=== PATIENT | female | born 1990 | race Caucasian/White ===

== ENCOUNTER 2016-10-15 10:37 | Emergency (ER) | payer OTHER ==
[~2016-10-15] VITALS: Ht 170.1 cm; Wt 79.4 kg
[~2016-10-15 10:37] MED LIST: 'CIPRO PO; 'PARAFON FORTE500 M1 PO; ANAPROX DS550 MG PO; ATOXIMETIN-B1 CAP; AVPAK AZITHROM250 M1 PO; Accuneb 0.1.25 MG/3 INH; BENTYL10 MG PO; BUSPIRONE HCL7.5 MG PO; BUSPIRONE10 MG PO; CATAFLAM50 MG PO; CIPRO; CIPRO250 MG PO; CIPRO500 MG PO; CIPROFLOXACIN500 MG PO; CLARITIN-D 12 H1 TAB PO; CLINDAMYCIN HC300 MG PO; COUGH MEDICINE PO; DELTASONE10 MG; DELTASONE20 M1 PO; DEPO PROVER150 MG/M1 IM; DOXYCYCLINE HY100 M3 PO; DOXYCYCLINE MO100 MG PO; DOXYCYCLINE100 M2 PO; EC NAPROSYN500 MG PO; FIORICET 325 MG1 TAB PO; FIORICET 50-301 EACH PO; FLAGYL500 M1 PO; FLONASE 0.05% 121 EA NAS; IBU800 M1 PO; IMITREX25 M1 PO; LATU20TA PO; LATU40TA PO; LATU60TA PO; LEVAQUIN750 MG PO; MACROBID100 M1 PO; MACRODANTIN100 MG PO; MEDROL DOSEPAK4 MG PO; MOTRIN600 MG PO; MOTRIN800 MG PO; MULTI VITAMINS1 TAB PO; MULTIVITAMIN; MVI PEDIATRIC1 PDS PO; Miralax Powder255 GM PO; Motrin,Rufen800 MG PO; NAPROSYN500 MG PO; NEXIUM40 MG PO; NKHM; NORCO 325 MG-51 TAB PO; OVRAL-21 50 MCG1 TAB PO; Orphenadrine C100 MG PO; PEPCID20 MG PO; PERCOCET 325 MG1 TA5 PO; PREDNICOT10 MG PO; PREDNICOT20 MG PO; PREDNISONE10 MG PO; PREDNISONE20 M1 PO; PRENATA1 CTB; PRENATAL1 TA1 PO; PROVENTIL0.09 MG/A1 INH; PULMICORT RESP0.5 M1 INH; PYRIDIUM200 M1 PO; PYRIDIUM200 MG PO; Phenergan25 MG PO; REGLAN10 MG PO; RIZATRIPTAN10 MG PO; ROBITUSSIN AC 110 ML PO; ROBITUSSIN DM 105 ML PO; ROBITUSSIN5 ML PO; TRAMADOL HCL50 MG PO; TYLENOL W/CODEI1 TA2 PO; TYLENOL325 M1 PO; ULTRAM50 MG PO; VENTOLIN H0.09 MG/AC INH; VIBRA-TAB100 MG PO; VIBRAMYCIN100 MG PO; VITAMIN D50000 I3 PO; VOLTAREN50 M1 PO; ZANTAC150 MG PO; ZITHROMAX Z PA250 MG PO; ZITHROMAX250 MG PO; ZOFRAN ODT4 MG PO; ZOFRAN ODT4 MG SL; ZOFRAN4 MG PO; ZOLOFT25 MG PO; ZOVIRAX 5%2 GM; ZOVIRAX400 MG PO; Zofran4 MG PO; [UNRECOGNIZED DRUG - REMARK] INH
[2016-10-15 10:46] VITALS: BP 115/81
[2016-10-15] MEDS ORDERED: AMBIEN5 MG PO (10:46)
[2016-10-15] MEDS ORDERED: TIZANIDINE2 MG PO (10:47)
[2016-11-15] MEDS ORDERED: PREDNISONE10 MG PO (19:24)
[2016-11-15] MEDS ORDERED: AVPAK AZITHROM250 M1 PO (19:24)
== END 2016-10-15 12:34 | disposition home or self-care (01) ==
LOC: ED 10:37
DX: S83.91XA Sprain of unspecified site of right knee, initial encounter (principal); K21.9 Gastro-esophageal reflux disease without esophagitis; G43.909 Migraine, unspecified, not intractable, without status migrainosus; F17.200 Nicotine dependence, unspecified, uncomplicated; Z88.0 Allergy status to penicillin; Z88.1 Allergy status to other antibiotic agents; Z88.8 Allergy status to other drugs, medicaments and biological substances; X58.XXXA Exposure to other specified factors, initial encounter; Y93.66 Activity, soccer; Y92.9 Unspecified place or not applicable; Y99.9 Unspecified external cause status

== ENCOUNTER 2016-12-24 12:41 | Emergency (ER) | payer OTHER ==
[~2016-12-24] VITALS: Ht 170.1 cm; Wt 79.4 kg
[~2016-12-24 12:41] MED LIST changes: +AMBIEN5 MG PO; +TIZANIDINE2 MG PO
[2016-12-24 12:46] VITALS: BP 113/75
== END 2016-12-24 16:27 | disposition home or self-care (01) ==
LOC: ED 12:41
DX: G43.909 Migraine, unspecified, not intractable, without status migrainosus (principal); K21.9 Gastro-esophageal reflux disease without esophagitis; Z88.0 Allergy status to penicillin; Z88.1 Allergy status to other antibiotic agents; Z88.8 Allergy status to other drugs, medicaments and biological substances

== ENCOUNTER 2017-01-18 11:01 | Emergency (ER) | payer OTHER ==
[~2017-01-18] VITALS: Wt 79.4 kg
[2017-01-18 11:23] VITALS: BP 120/79
== END 2017-01-18 12:46 | disposition home or self-care (01) ==
LOC: ED 11:01
DX: S63.501A Unspecified sprain of right wrist, initial encounter (principal); F17.200 Nicotine dependence, unspecified, uncomplicated; Z88.0 Allergy status to penicillin; Z88.1 Allergy status to other antibiotic agents; Z88.2 Allergy status to sulfonamides; Z88.6 Allergy status to analgesic agent; Z88.8 Allergy status to other drugs, medicaments and biological substances

== ENCOUNTER 2017-01-24 10:05 | Emergency (ER) | payer OTHER ==
[~2017-01-24] VITALS: Ht 170.1 cm; Wt 79.4 kg
[2017-01-24 10:09] VITALS: BP 139/93
[2017-01-24] MEDS ORDERED: FLONASE ALLERG9.9 ML NAS (10:16)
[2017-01-24] MEDS ORDERED: ROBITUSSIN AC 110 ML PO (10:16)
[2017-01-24] MEDS ORDERED: PREDNISONE10 MG PO (10:16)
== END 2017-01-24 11:11 | disposition home or self-care (01) ==
LOC: ED 10:05
DX: B34.9 Viral infection, unspecified (principal); R03.0 Elevated blood-pressure reading, without diagnosis of hypertension; F17.200 Nicotine dependence, unspecified, uncomplicated; J45.901 Unspecified asthma with (acute) exacerbation; K21.9 Gastro-esophageal reflux disease without esophagitis; G43.909 Migraine, unspecified, not intractable, without status migrainosus; Z88.8 Allergy status to other drugs, medicaments and biological substances; Z90.49 Acquired absence of other specified parts of digestive tract; Z98.890 Other specified postprocedural states; Z88.0 Allergy status to penicillin; Z88.1 Allergy status to other antibiotic agents

== ENCOUNTER 2017-02-05 10:28 | Emergency (ER) | payer OTHER ==
[~2017-02-05] VITALS: Ht 170.1 cm; Wt 81.6 kg
--- NOTE | ~2017-02-05 | EKG ---
[place], [place] ELECTROCARDIOGRAM REPORT NAME: LEONORA NOLASCO UNIT #: [id number] ROOM: DOCTOR: JT WOMACK MD BIRTHDATE: [birth year] DOS: 02/05/2017 TIME: 1156 hours. FINDINGS: 1. Normal sinus rhythm at 75 beats per minute. 2. The tracing is normal. 3. No previous tracing is available for comparison. JT WOMACK MD CM:EKGRPT:ELECTROCARDIOGRAM REPORT [id number] JT WOMACK MD
[~2017-02-05 10:28] MED LIST changes: +FLONASE ALLERG9.9 ML NAS
[2017-02-05 11:01] VITALS: BP 142/92
[2017-02-05] MEDS ORDERED: ZOLPIDEM TART5 MG PO (11:02)
[2017-02-05] MEDS ORDERED: LATUDA80 M1 PO (11:02)
[2017-02-05] MEDS ORDERED: LATU20TA PO (11:03)
[2017-02-05 11:33] LABS: BILIRUBIN NEGATIVE (NEGATIVE); BLOOD NEGATIVE (NEGATIVE); CLARITY CLEAR (CLEAR); COLOR YELLOW (YELLOW); GLUCOSE NEGATIVE (NEGATIVE); KETONE NEGATIVE (NEGATIVE); LEUKO ESTERASE 2+ (NEGATIVE); NITRITE NEGATIVE (NEGATIVE); PH 6.5 (5.0-9.0); PROTEIN TRACE (NEGATIVE); SPECIFIC GRAVITY 1.015 (1.005-1.030)
[2017-02-05 11:36] LABS: BASO % 0.4 % (0.0-1.0); EOS # 0.1 10*3/uL (0.0-0.4); EOS % 0.9 % (1.0-4.0); HEMATOCRIT 40.3 % (37.0-47.0); HEMOGLOBIN 14.4 g/dl (12.0-16.0); LYMPH # 1.9 10*3/uL (1.3-4.4); LYMPH % 20.5 % (27.0-41.0); MEAN CELL VOLUME 90.2 fl (81.0-99.0); MEAN CORPUSCULAR HGB 32.2 pg (27.0-31.0); MEAN CORPUSCULAR HGB CONC 35.7 g/dl (33.0-37.0); MEAN PLATELET VOLUME 10.5 fl (9.6-12.3); MONO # 0.6 10*3/uL (0.1-1.0); MONO % 6.6 % (3.0-9.0); NEUT # 6.5 10*3/uL (2.3-7.9); NEUT % 71.3 % (47.0-73.0); PLATELET COUNT AUTOMATED 296 10*3/uL (130-400); RED BLOOD COUNT 4.47 10*6/uL (4.10-5.10); RED CELL DISTRI WIDTH 12.1 % (0-14.5); WHITE BLOOD COUNT 9.2 10*3/uL (4.8-10.8)
[2017-02-05 11:51] LABS: ALKALINE PHOSPHATASE 106 U/L (45-117); BILIRUBIN, TOTAL 0.6 mg/dl (0.2-1.0); BUN 7 mg/dl (7-24); CARBON DIOXIDE 25 mmol/L (21-32); CHLORIDE 106 mmol/L (98-107); EST GLOM FILT AFRICAN AMERICAN > 60 ml/min; GLUCOSE 88 mg/dL (65-99); MAGNESIUM 1.9 mg/dL (1.5-2.1); POTASSIUM 3.8 mmol/L (3.5-5.1); SGOT/AST 32 IU/L (3-35); SGPT/ALT 55 U/L (12-78); SODIUM 139 mmol/L (136-145); TOTAL PROTEIN 7.7 gm/dL (6.4-8.2)
[2017-02-05 11:52] LABS: BACTERIA 2+; URINE REFLEX COMMENT YES (NO)
[2017-02-05 11:53] LABS: EPITHELIAL CELLS 21-30
[2017-02-05 11:54] LABS: RBC 16-20 rbc/hpf (0-2)
[2017-02-05 11:55] LABS: URINE AMPHETAMINES > 1000 (1000ng/ml); URINE BARBITURATES < 200 (200ng/ml); URINE COCAINE < 300 (300ng/ml)
== END 2017-02-05 16:53 | disposition home or self-care (01) ==
LOC: ED 10:28
PROVIDERS: Emergency Medicine
DX: F32.9 Major depressive disorder, single episode, unspecified (principal); K21.9 Gastro-esophageal reflux disease without esophagitis; G43.909 Migraine, unspecified, not intractable, without status migrainosus; F17.200 Nicotine dependence, unspecified, uncomplicated; J44.9 Chronic obstructive pulmonary disease, unspecified; Z88.0 Allergy status to penicillin; Z88.1 Allergy status to other antibiotic agents; Z88.8 Allergy status to other drugs, medicaments and biological substances

== ENCOUNTER 2017-03-07 16:57 | Emergency (ER) | payer OTHER ==
[~2017-03-07 16:57] MED LIST changes: +LATUDA80 M1 PO; +ZOLPIDEM TART5 MG PO
[2017-03-07 16:59] VITALS: BP 119/84
[2017-03-07] MEDS ORDERED: ZOFRAN ODT4 MG SL (17:07)
[2017-03-07] MEDS ORDERED: CLINDAMYCIN HC300 MG PO (17:07)
== END 2017-03-07 17:38 | disposition home or self-care (01) ==
LOC: ED 16:57
DX: J02.0 Streptococcal pharyngitis (principal); Z88.0 Allergy status to penicillin; Z88.1 Allergy status to other antibiotic agents; Z88.8 Allergy status to other drugs, medicaments and biological substances

== ENCOUNTER 2017-05-03 17:47 | Emergency (ER) | payer OTHER ==
[~2017-05-03] VITALS: Ht 170.1 cm; Wt 81.6 kg
[2017-05-03 18:08] VITALS: BP 146/92
[2017-05-03] MEDS ORDERED: ZOLOFT25 MG PO (18:12)
[2017-05-03 18:19] LABS: BILIRUBIN NEGATIVE (NEGATIVE); BLOOD NEGATIVE (NEGATIVE); CLARITY CLOUDY (CLEAR); COLOR YELLOW (YELLOW); GLUCOSE NEGATIVE (NEGATIVE); KETONE NEGATIVE (NEGATIVE); LEUKO ESTERASE 1+ (NEGATIVE); NITRITE NEGATIVE (NEGATIVE); PROTEIN NEGATIVE (NEGATIVE); SPECIFIC GRAVITY <= 1.005 (1.005-1.030); UROBILINOGEN 0.2 E.U./dl (0.2-1.0)
[2017-05-03 18:27] LABS: URINE REFLEX COMMENT YES (NO)
[2017-05-03 18:28] LABS: BACTERIA TRACE; EPITHELIAL CELLS 16-20; MUCOUS TRACE
== END 2017-05-03 18:55 | disposition home or self-care (01) ==
LOC: ED 17:47
PROVIDERS: Emergency Medicine
DX: A59.9 Trichomoniasis, unspecified (principal); R10.30 Lower abdominal pain, unspecified; J44.9 Chronic obstructive pulmonary disease, unspecified; K21.9 Gastro-esophageal reflux disease without esophagitis; G43.909 Migraine, unspecified, not intractable, without status migrainosus; F17.200 Nicotine dependence, unspecified, uncomplicated; Z88.0 Allergy status to penicillin; Z88.1 Allergy status to other antibiotic agents; Z88.8 Allergy status to other drugs, medicaments and biological substances; Z79.899 Other long term (current) drug therapy

== ENCOUNTER 2017-05-15 12:11 | Emergency (ER) | payer OTHER ==
[~2017-05-15] VITALS: Ht 170.1 cm; Wt 79.8 kg
[2017-05-15 12:28] VITALS: BP 118/88
[2017-05-15 12:50] LABS: BILIRUBIN NEGATIVE (NEGATIVE); BLOOD NEGATIVE (NEGATIVE); CLARITY CLOUDY (CLEAR); COLOR YELLOW (YELLOW); GLUCOSE NEGATIVE (NEGATIVE); KETONE NEGATIVE (NEGATIVE); LEUKO ESTERASE 1+ (NEGATIVE); NITRITE NEGATIVE (NEGATIVE); PH 6.5 (5.0-9.0); PROTEIN NEGATIVE (NEGATIVE); UROBILINOGEN 0.2 E.U./dl (0.2-1.0)
[2017-05-15 13:01] LABS: BACTERIA 2+; EPITHELIAL CELLS 15-20; MUCOUS 1+; URINE REFLEX COMMENT YES (NO)
== END 2017-05-15 13:13 | disposition home or self-care (01) ==
LOC: ED 12:11
PROVIDERS: Emergency Medicine
DX: R10.2 Pelvic and perineal pain (principal); R25.2 Cramp and spasm; J45.909 Unspecified asthma, uncomplicated; K21.9 Gastro-esophageal reflux disease without esophagitis; F17.200 Nicotine dependence, unspecified, uncomplicated; Z88.0 Allergy status to penicillin; Z88.1 Allergy status to other antibiotic agents; Z88.8 Allergy status to other drugs, medicaments and biological substances; Z79.899 Other long term (current) drug therapy

== ENCOUNTER 2017-05-26 18:02 | Emergency (ER) | payer OTHER ==
[~2017-05-26] VITALS: Ht 170.1 cm; Wt 79.4 kg
[2017-05-26 18:05] VITALS: BP 145/97
== END 2017-05-26 19:41 | disposition home or self-care (01) ==
LOC: ED 18:02
DX: G43.909 Migraine, unspecified, not intractable, without status migrainosus (principal); J02.9 Acute pharyngitis, unspecified; F17.200 Nicotine dependence, unspecified, uncomplicated; Z90.49 Acquired absence of other specified parts of digestive tract; Z79.899 Other long term (current) drug therapy; Z88.8 Allergy status to other drugs, medicaments and biological substances; Z88.1 Allergy status to other antibiotic agents; Z88.0 Allergy status to penicillin; Z88.6 Allergy status to analgesic agent

== ENCOUNTER 2017-05-31 10:56 | Emergency (ER) | payer OTHER ==
[~2017-05-31] VITALS: Ht 170.1 cm; Wt 79.4 kg
[2017-05-31 11:10] VITALS: BP 126/77
[2017-05-31] MEDS ORDERED: CYCLOBENZAPRINE10 MG PO (12:35)
[2017-05-31] MEDS ORDERED: NAPROSYN500 MG PO (12:35)
== END 2017-05-31 13:01 | disposition home or self-care (01) ==
LOC: ED 10:56
DX: M43.6 Torticollis (principal); F17.200 Nicotine dependence, unspecified, uncomplicated; Z88.0 Allergy status to penicillin; Z88.1 Allergy status to other antibiotic agents; Z88.8 Allergy status to other drugs, medicaments and biological substances; Z79.899 Other long term (current) drug therapy

== ENCOUNTER 2017-06-12 11:05 | Emergency (ER) | payer OTHER ==
[~2017-06-12] VITALS: Ht 170.1 cm; Wt 79.4 kg
[~2017-06-12 11:05] MED LIST changes: +CYCLOBENZAPRINE10 MG PO
[2017-06-12 11:11] VITALS: BP 124/90
[2017-06-12] MEDS ORDERED: CORTISPORIN SUS10 ML OT (11:16)
== END 2017-06-12 11:14 | disposition home or self-care (01) ==
LOC: ED 11:05
DX: H60.92 Unspecified otitis externa, left ear (principal); H92.02 Otalgia, left ear; R03.0 Elevated blood-pressure reading, without diagnosis of hypertension; F17.200 Nicotine dependence, unspecified, uncomplicated; K21.9 Gastro-esophageal reflux disease without esophagitis; G43.909 Migraine, unspecified, not intractable, without status migrainosus; Z90.49 Acquired absence of other specified parts of digestive tract; Z79.899 Other long term (current) drug therapy; Z88.0 Allergy status to penicillin; Z88.1 Allergy status to other antibiotic agents; Z88.8 Allergy status to other drugs, medicaments and biological substances; Z88.6 Allergy status to analgesic agent

== ENCOUNTER 2017-07-07 10:06 | Inpatient (IN) | payer OTHER ==
[2017-07-07] VITALS (7 sets, daily range): BP systolic 112–122; BP diastolic 61–91
[~2017-07-07] VITALS: Ht 170.2 cm; Wt 83.3 kg
[~2017-07-07 10:06] MED LIST changes: +CORTISPORIN SUS10 ML OT; +ZOLOFT100 MG PO
[2017-07-07 10:52] LABS: BASO % 0.4 % (0.0-1.0); HEMATOCRIT 42.9 % (37.0-47.0); LYMPH # 0.6 10*3/uL (1.3-4.4); LYMPH % 5.9 % (27.0-41.0); MEAN CELL VOLUME 89.2 fl (81.0-99.0); MEAN CORPUSCULAR HGB 31.2 pg (27.0-31.0); MEAN PLATELET VOLUME 10.1 fl (9.6-12.3); MONO # 0.5 10*3/uL (0.1-1.0); MONO % 5.3 % (3.0-9.0); NEUT # 8.3 10*3/uL (2.3-7.9); NEUT % 87.7 % (47.0-73.0); PLATELET COUNT AUTOMATED 205 10*3/uL (130-400); RED BLOOD COUNT 4.81 10*6/uL (4.10-5.10); RED CELL DISTRI WIDTH 12.5 % (0-14.5); WHITE BLOOD COUNT 9.5 10*3/uL (4.8-10.8)
[2017-07-07 11:00] LABS: URINE AMPHETAMINES < 1000 (1000ng/ml); URINE BARBITURATES < 200 (200ng/ml); URINE BENZODIAZEPINES < 200 (200ng/ml); URINE CANNABINOIDS (THC) < 50 (50ng/ml); URINE COCAINE < 300 (300ng/ml); URINE METHADONE < 300 (300ng/ml); URINE OPIATES < 300 (300ng/ml)
[2017-07-07 11:04] LABS: URINE PHENCYCLIDINE < 25 (25ng/ml)
[2017-07-07 11:09] LABS: ALBUMIN 3.9 gm/dl (3.1-4.5); ALKALINE PHOSPHATASE 155 U/L (45-117); BUN 6 mg/dl (7-24); CHLORIDE 102 mmol/L (98-107); CREATININE 0.68 mg/dL (0.55-1.02); LIPASE 90 U/L (73-393); MAGNESIUM 1.7 mg/dL (1.5-2.1); POTASSIUM 3.7 mmol/L (3.5-5.1); SGOT/AST 51 IU/L (3-35); SGPT/ALT 58 U/L (12-78); SODIUM 135 mmol/L (136-145)
[2017-07-07 11:10] LABS: B-hCG (QUALITATIVE) NEGATIVE (NEGATIVE)
[2017-07-07 11:14] LABS: TROPONIN I < 0.015 ng/ml (<0.045)
[2017-07-07 11:15] LABS: THYROID STIM HORMONE (HS) 0.163 uIU/ml (0.358-4.75)
[2017-07-07 11:20] LABS: BILIRUBIN NEGATIVE (NEGATIVE); BLOOD NEGATIVE (NEGATIVE); CLARITY SL CLOUDY (CLEAR); COLOR YELLOW (YELLOW); GLUCOSE NEGATIVE (NEGATIVE); KETONE NEGATIVE (NEGATIVE); LEUKO ESTERASE NEGATIVE (NEGATIVE); NITRITE NEGATIVE (NEGATIVE); PH 6.5 (5.0-9.0)
[2017-07-07 11:27] LABS: CALCIUM OXALATE CRYSTALS 1+
[2017-07-07 11:28] LABS: BACTERIA TRACE
--- NOTE | 2017-07-07 12:56 | NUR ---
PT RESTING WITH EYES CLOSED. REPORTS HER HEADACHE REMAINS AND SLIGHT NAUSEA WELL DESPITE MEDICATION DOSING. WE WILL REPEAT RECTAL TEMP IN APPROX [address] RESULTS. LUMBAR PUNCTURE PENDING PER DR SALINAS AND DEPENDING ON SEVERAL FACTORS TO BE DETERMINED.
--- NOTE | 2017-07-07 14:52 | NUR ---
PATIENT RESTING WITH EYES CLOSED. PATIENT LAYING FLAT PER MD ORDERS AND WILL REMAIN FLAT FOR THE NEXT FEW HOURS. PATIENT IS GETTING NORMAL SALINE BOLUS AT THIS TIME. CALL LIGHT WITHIN REACH. NO NEEDS AT THIS TIME.
[2017-07-07 15:07] LABS: CSF RBC < 1000 /uL; CSF WBC 3 /uL
[2017-07-07 15:25] LABS: CSF GLUCOSE 62 mg/dL (40-70); CSF TOTAL PROTEIN 41.5 mg/dL (15-45)
[2017-07-07 15:49] LABS: CLARITY CLEAR; COLOR COLORLESS
[2017-07-07 15:58] LABS: CSF LYMPHOCYTES 77 % (40-80); CSF MONOCYTES 22 % (15-45)
--- NOTE | 2017-07-07 16:29 | NUR ---
SALINE AND ROCEPHIN INFUSING AT TIME OF ADMISSION, NOW.
--- NOTE | 2017-07-07 16:35 | NUR ---
A 26, admitted to [facility], under the services of RADHA Coker DO with a diagnosis of SEPSIS. Chief complaint is N/V AND COLD LIKE SYMPTOMS. Patient arrived via stretcher from ER. Monitor applied. Initial assessment completed. Vital signs taken and recorded. RADHA COKER DO notified of admission to the unit. Orders received. See assessment for past medical history, medications and allergies. Patient and/or family oriented to unit. [facility] visitation policy reviewed. Clothing/patient valuable form completed. JUSTIN PIMENTEL
--- NOTE | 2017-07-07 17:28 | NUR ---
Dr. Paez was notified of consult. Stated someone will see her in the AM.
[2017-07-07] MEDS ORDERED: ZANAFLEX4 M1 PO (17:37)
--- NOTE | 2017-07-07 17:38 | NUR ---
Meds were confirmed w/ pt. pharmacy.
--- NOTE | 2017-07-07 21:15 | NUR ---
PT STILL HUNGRY AFTER EATING ENTIRE DINNER TRAY. BOXED LUNCH PROVIDED.
[2017-07-08] VITALS: BP 124/60
[2017-07-08 04:00] VITALS: BP 119/74
--- NOTE | 2017-07-08 04:01 | NUR ---
RESTORIL AND TYLENOL GIVEN PER PT REQUEST FOR SLEEP AND GENERALIZED ACHES AT 0050 EFFECTIVE....PT HAS BEEN DOZING, AWAKENS EASILY, SAYS "FEELING BETTER".
[2017-07-08 04:35] LABS: MEAN CELL VOLUME 90.6 fl (81.0-99.0); MEAN CORPUSCULAR HGB 31.7 pg (27.0-31.0); MEAN PLATELET VOLUME 10.2 fl (9.6-12.3); RED BLOOD COUNT 3.82 10*6/uL (4.10-5.10); RED CELL DISTRI WIDTH 13.1 % (0-14.5); WHITE BLOOD COUNT 6.1 10*3/uL (4.8-10.8)
[2017-07-08 04:43] LABS: HEMATOCRIT 34.6 % (37.0-47.0); HEMOGLOBIN 12.1 g/dl (12.0-16.0); PLATELET COUNT AUTOMATED 140 10*3/uL (130-400)
[2017-07-08 04:47] LABS: ACT PARTIAL THROMBO TIME 25.5 SECONDS (20.8-31.5); INTERNATIONAL NORM RATIO 1.1 (2.0-3.5)
[2017-07-08 04:55] LABS: ALBUMIN 2.9 gm/dl (3.1-4.5); BUN 8 mg/dl (7-24); CHLORIDE 109 mmol/L (98-107); CHOLESTEROL 110 mg/dL (<200); CREATININE 0.58 mg/dL (0.55-1.02); MAGNESIUM 1.6 mg/dL (1.5-2.1); PHOSPHOROUS 2.2 mg/dL (2.5-4.9); POTASSIUM 3.9 mmol/L (3.5-5.1); SGOT/AST 134 IU/L (3-35); SGPT/ALT 98 U/L (12-78); SODIUM 140 mmol/L (136-145); TOTAL PROTEIN 5.9 gm/dL (6.4-8.2); TRIGLYCERIDES 57 mg/dl (<150); VLDL CHOLESTEROL 11 mg/dL (6-40)
[2017-07-08 04:57] LABS: ALKALINE PHOSPHATASE 181 U/L (45-117); ATYPICAL LYMPHS 1 % (0-0); FREE T4 0.84 ng/dl (0.76-1.46); HDL CHOLESTEROL 49 mg/dl (40-60); LDL CHOLESTEROL 50 mg/dL (9-159); PLATELET SUFFICIENCY LOW (NORMAL); TOTAL CELLS COUNTED 100 #CELLS
[2017-07-08 07:38] LABS: VITAMIN D, 25-HYDROXY 19.4 ng/mL (30-100)
[2017-07-08 08:00] VITALS: BP 130/85
--- NOTE | 2017-07-08 09:08 | NUR ---
Dr. Gomez in to [facility]. Medicated for c/o migraine. see e-nov.
--- NOTE | 2017-07-08 11:24 | NUR ---
Awakened for ABX side lying states headache has improved a little bit.
[2017-07-08 12:00] VITALS: BP 118/78
--- NOTE | 2017-07-08 12:26 | NUR ---
Dr. Purdy in to [facility]. Orders recieved.
--- NOTE | 2017-07-08 15:15 | NUR ---
RE: CONSTANT DOWNSTREAM OCCLUSION iv WAS RE-STARTED TO rw. Dr. Purdy in to [place] to transfer to [facility] . Awaiting orders.
[2017-07-08 16:00] VITALS: BP 123/83
[2017-07-08 20:00] VITALS: BP 125/84
--- NOTE | 2017-07-08 21:15 | NUR ---
PATIENT COMPLAINING OF HEADACHE AND CHEST PAIN CALLED ALAN SAMAYOA. WHO CAME UP TO THE FLOOR IMMEDATELY ORDERS RECIEVED. AFTER I INFORMED HIM PATIENT WAS JUST GIVEN MOTRIN FOR HEADACHE.
--- NOTE | 2017-07-08 23:00 | NUR ---
PATIENT REQUESTED MESH PANTIES AND PADS STATING SHE STARTED HER MENSTRUAL CYCLE.
--- NOTE | 2017-07-08 23:27 | NUR ---
PATIENT IS GAGING COUGHING AND VOMITNG.ZOFRAN NOT AFFECTIVE. CALLED DOCTOR DANITA WHO SAID HE WOULD PUT SOMETHING IN.
--- NOTE | 2017-07-08 23:42 | NUR ---
PATIENT GIVEN COMPAZINE FOR NAUSEA AND VOMITING.
[2017-07-09] VITALS: BP 120/76
--- NOTE | 2017-07-09 01:00 | NUR ---
PATIENT RESTING WITH EYES CLOSED NO VOMITING AT THIS TIME.MEDS AFFECTIVE
[2017-07-09 04:00] VITALS: BP 118/78
[2017-07-09 04:28] LABS: HEMATOCRIT 34.2 % (37.0-47.0); HEMOGLOBIN 12.2 g/dl (12.0-16.0); MEAN CELL VOLUME 89.5 fl (81.0-99.0); MEAN CORPUSCULAR HGB 31.9 pg (27.0-31.0); MEAN CORPUSCULAR HGB CONC 35.7 g/dl (33.0-37.0); MEAN PLATELET VOLUME 10.7 fl (9.6-12.3); PLATELET COUNT AUTOMATED 114 10*3/uL (130-400); RED BLOOD COUNT 3.82 10*6/uL (4.10-5.10); RED CELL DISTRI WIDTH 13.2 % (0-14.5); WHITE BLOOD COUNT 3.6 10*3/uL (4.8-10.8)
[2017-07-09 04:56] LABS: BASOPHILS 1 % (0-1); TOTAL CELLS COUNTED 100 #CELLS
[2017-07-09 04:58] LABS: PLATELET SUFFICIENCY LOW (NORMAL)
[2017-07-09 04:59] LABS: ALBUMIN 2.9 gm/dl (3.1-4.5); BUN 6 mg/dl (7-24); CHLORIDE 109 mmol/L (98-107); CREATININE 0.55 mg/dL (0.55-1.02); POTASSIUM 3.9 mmol/L (3.5-5.1); SGOT/AST 116 IU/L (3-35); SGPT/ALT 104 U/L (12-78); SODIUM 141 mmol/L (136-145); TOTAL PROTEIN 5.9 gm/dL (6.4-8.2)
[2017-07-09 05:00] LABS: ALKALINE PHOSPHATASE 292 U/L (45-117)
--- NOTE | 2017-07-09 06:20 | NUR ---
PATIENT RESTING WITH NO VOMITING. PATIENT HAS BEEN NPO SINCE MIDNIGHT. VITALS STABLE CURRENLTY.
[2017-07-09 08:00] VITALS: BP 124/83
[2017-07-09 08:11] LABS: HEPATITIS B SURFACE AG Negative (Negative); HEPATITIS C VIRUS ANTIBODY <0.1 s/co (0.0-0.9)
--- NOTE | 2017-07-09 11:44 | NUR ---
DR PLASENCIA CALLED AT PTS REQUEST, PT WANTS TO GO HOME, HER KIDS ARE CRYING FOR HER AND HER CAN NOT TAKE ANY MORE TIME OFF WORK, PT IS REQUESTING TO SEE HOME
--- NOTE | 2017-07-09 11:55 | NUR ---
DR BURKS SPOKE WITH PT,PT SIGNING AMA
--- NOTE | 2017-07-09 12:10 | NUR ---
FLU SHOT GIVEN PER POLICY, PT LEFT AMA
[2017-07-10 00:08] LABS: HSV-2 DNA Negative (Negative)
[2017-07-10 08:13] LABS: HIV 1+2 AB + HIV1 P24 AG Non Reactive (Non Reactive)
[2017-07-10] MEDS ORDERED: Zofran4 MG SL (15:57)
== END 2017-07-09 12:10 | disposition left against medical advice (07) | DRG 871 ==
LOC: ED 10:06 → EDHOLD 15:48 → ICCU 15:48
PROVIDERS: Emergency Medicine; Internal Medicine; ADMIT Internal Medicine
PROC: 009U3ZX Drainage of Spinal Canal, Percutaneous Approach, Diagnostic (ICD-10-PCS; principal; 2017-07-07)
DX: A41.9 Sepsis, unspecified organism (principal); G03.0 Nonpyogenic meningitis; E44.0 Moderate protein-calorie malnutrition; F31.30 Bipolar disorder, current episode depressed, mild or moderate severity, unspecified; M25.561 Pain in right knee; M54.5 Low back pain; J45.40 Moderate persistent asthma, uncomplicated; J32.9 Chronic sinusitis, unspecified; M54.31 Sciatica, right side; G43.919 Migraine, unspecified, intractable, without status migrainosus; K21.9 Gastro-esophageal reflux disease without esophagitis; Z53.21 Procedure and treatment not carried out due to patient leaving prior to being seen by health care provider; M79.1 Myalgia; R74.0 Nonspecific elevation of levels of transaminase and lactic acid dehydrogenase [LDH]; K59.00 Constipation, unspecified; Z68.28 Body mass index [BMI] 28.0-28.9, adult; Z88.8 Allergy status to other drugs, medicaments and biological substances; Z88.0 Allergy status to penicillin; Z88.1 Allergy status to other antibiotic agents; Z88.2 Allergy status to sulfonamides; Z79.899 Other long term (current) drug therapy; Z90.49 Acquired absence of other specified parts of digestive tract; Z87.440 Personal history of urinary (tract) infections; Z83.3 Family history of diabetes mellitus; Z80.9 Family history of malignant neoplasm, unspecified

== ENCOUNTER 2017-07-10 13:59 | Emergency (ER) | payer OTHER ==
[~2017-07-10] VITALS: Ht 170.1 cm; Wt 82.6 kg
[~2017-07-10 13:59] MED LIST changes: +ZANAFLEX4 M1 PO
[2017-07-10 14:04] VITALS: BP 148/70
[2017-07-10 14:57] LABS: HEMATOCRIT 40.1 % (37.0-47.0); MEAN CELL VOLUME 88.1 fl (81.0-99.0); MEAN CORPUSCULAR HGB 31.4 pg (27.0-31.0); MEAN CORPUSCULAR HGB CONC 35.7 g/dl (33.0-37.0); RED BLOOD COUNT 4.55 10*6/uL (4.10-5.10); WHITE BLOOD COUNT 6.8 10*3/uL (4.8-10.8)
[2017-07-10 15:02] LABS: HEMOGLOBIN 14.3 g/dl (12.0-16.0); PLATELET COUNT AUTOMATED 159 10*3/uL (130-400)
[2017-07-10 15:03] LABS: ALBUMIN 3.8 gm/dl (3.1-4.5); ALKALINE PHOSPHATASE 308 U/L (45-117); BUN 8 mg/dl (7-24); CHLORIDE 108 mmol/L (98-107); CREATININE 0.55 mg/dL (0.55-1.02); LIPASE 69 U/L (73-393); POTASSIUM 3.6 mmol/L (3.5-5.1); SGOT/AST 138 IU/L (3-35); SGPT/ALT 138 U/L (12-78); SODIUM 141 mmol/L (136-145); TOTAL PROTEIN 7.1 gm/dL (6.4-8.2)
[2017-07-10 15:08] LABS: BETA-HCG, QUANT < 1.0 mIU/mL (1-3)
[2017-07-10 15:13] LABS: ATYPICAL LYMPHS 2 % (0-0); BASOPHILS 1 % (0-1); TOTAL CELLS COUNTED 100 #CELLS
[2017-07-10 15:14] LABS: PLATELET SUFFICIENCY NORMAL (NORMAL)
[2017-07-10 15:40] LABS: BILIRUBIN 1+ (NEGATIVE); BLOOD NEGATIVE (NEGATIVE); CLARITY SL CLOUDY (CLEAR); COLOR YELLOW (YELLOW); GLUCOSE NEGATIVE (NEGATIVE); KETONE 1+ (NEGATIVE); LEUKO ESTERASE TRACE (NEGATIVE); NITRITE NEGATIVE (NEGATIVE); PH 6.5 (5.0-9.0)
[2017-07-10 15:52] LABS: BACTERIA 2+; EPITHELIAL CELLS 16-20; MUCOUS 1+; RBC 0-2 rbc/hpf (0-2)
[2017-07-10] MEDS ORDERED: Zofran4 MG SL (15:57)
== END 2017-07-10 16:14 | disposition home or self-care (01) ==
LOC: ED 13:59
PROVIDERS: Student in an Organized Health Care Education/Training Program
DX: N39.0 Urinary tract infection, site not specified (principal); K21.9 Gastro-esophageal reflux disease without esophagitis; G43.909 Migraine, unspecified, not intractable, without status migrainosus; F17.200 Nicotine dependence, unspecified, uncomplicated; Z88.0 Allergy status to penicillin; Z88.1 Allergy status to other antibiotic agents; Z79.899 Other long term (current) drug therapy

== ENCOUNTER 2017-08-07 21:03 | Emergency (ER) | payer OTHER ==
[~2017-08-07] VITALS: Ht 170.1 cm; Wt 81.6 kg
[~2017-08-07 21:03] MED LIST changes: +Zofran4 MG SL
[2017-08-07 21:14] VITALS: BP 144/84
[2017-08-07 21:24] LABS: BILIRUBIN NEGATIVE (NEGATIVE); BLOOD NEGATIVE (NEGATIVE); CLARITY SL CLOUDY (CLEAR); COLOR YELLOW (YELLOW); GLUCOSE NEGATIVE (NEGATIVE); KETONE NEGATIVE (NEGATIVE); LEUKO ESTERASE 2+ (NEGATIVE); NITRITE NEGATIVE (NEGATIVE); PH 5.5 (5.0-9.0); UROBILINOGEN 0.2 E.U./dl (0.2-1.0)
[2017-08-07 21:31] LABS: EPITHELIAL CELLS TNTC
[2017-08-07] MEDS ORDERED: ZOFRAN ODT4 MG SL (21:47)
[2017-08-07] MEDS ORDERED: MACROBID100 M1 PO (21:47)
== END 2017-08-07 21:51 | disposition home or self-care (01) ==
LOC: ED 21:03
PROVIDERS: Nurse Practitioner Family
DX: Z32.02 Encounter for pregnancy test, result negative (principal); N39.0 Urinary tract infection, site not specified; F17.200 Nicotine dependence, unspecified, uncomplicated; Z88.0 Allergy status to penicillin; Z88.1 Allergy status to other antibiotic agents; Z88.6 Allergy status to analgesic agent; Z90.49 Acquired absence of other specified parts of digestive tract

== ENCOUNTER 2017-10-06 18:39 | Emergency (ER) | payer OTHER ==
[~2017-10-06] VITALS: Ht 170.1 cm; Wt 79.4 kg
[2017-10-06] MEDS ORDERED: ZOLOFT100 MG PO (19:23)
[2017-10-06] MEDS ORDERED: LATU120T PO (19:23)
[2017-10-06] MEDS ORDERED: ZOLOFT50 MG PO (19:23)
[2017-10-06] MEDS ORDERED: AMBIEN10 M1 PO (19:23)
[2017-10-06 19:50] LABS: BASO # 0.1 10*3/uL (0.0-0.1); BASO % 0.6 % (0.0-1.0); EOS # 0.2 10*3/uL (0.0-0.4); EOS % 1.8 % (1.0-4.0); HEMATOCRIT 43.7 % (37.0-47.0); HEMOGLOBIN 15.1 g/dl (12.0-16.0); LYMPH % 23.8 % (27.0-41.0); MEAN CELL VOLUME 89.9 fl (81.0-99.0); MEAN CORPUSCULAR HGB 31.1 pg (27.0-31.0); MEAN CORPUSCULAR HGB CONC 34.6 g/dl (33.0-37.0); MEAN PLATELET VOLUME 10.9 fl (9.6-12.3); MONO # 0.7 10*3/uL (0.1-1.0); MONO % 5.4 % (3.0-9.0); NEUT # 8.4 10*3/uL (2.3-7.9); NEUT % 68.1 % (47.0-73.0); PLATELET COUNT AUTOMATED 322 10*3/uL (130-400); RED BLOOD COUNT 4.86 10*6/uL (4.10-5.10); RED CELL DISTRI WIDTH 12.2 % (0-14.5); WHITE BLOOD COUNT 12.4 10*3/uL (4.8-10.8)
[2017-10-06 19:56] LABS: BILIRUBIN NEGATIVE (NEGATIVE); BLOOD 1+ (NEGATIVE); CLARITY SL CLOUDY (CLEAR); COLOR YELLOW (YELLOW); GLUCOSE NEGATIVE (NEGATIVE); KETONE TRACE (NEGATIVE); LEUKO ESTERASE NEGATIVE (NEGATIVE); NITRITE NEGATIVE (NEGATIVE); PH 5.5 (5.0-9.0); UROBILINOGEN 0.2 E.U./dl (0.2-1.0)
[2017-10-06 20:04] LABS: ALBUMIN 4.4 gm/dl (3.1-4.5); ALKALINE PHOSPHATASE 119 U/L (45-117); BUN 7 mg/dl (7-24); CHLORIDE 105 mmol/L (98-107); CREATININE 0.78 mg/dL (0.55-1.02); LIPASE 169 U/L (73-393); POTASSIUM 3.8 mmol/L (3.5-5.1); SGOT/AST 14 IU/L (3-35); SGPT/ALT 20 U/L (12-78); SODIUM 139 mmol/L (136-145); TOTAL PROTEIN 8.1 gm/dL (6.4-8.2)
[2017-10-06 20:15] LABS: BACTERIA 1+; EPITHELIAL CELLS TNTC; MUCOUS 1+; WBC 0-2 wbc/hpf (0-5)
[2017-10-06] MEDS ORDERED: ZOFRAN ODT4 MG SL (21:44)
[2017-10-06 21:53] VITALS: BP 112/75
== END 2017-10-06 21:50 | disposition home or self-care (01) ==
LOC: ED 18:39
PROVIDERS: Physician Assistant
DX: K82.8 Other specified diseases of gallbladder (principal); Z88.1 Allergy status to other antibiotic agents; Z88.2 Allergy status to sulfonamides; Z88.0 Allergy status to penicillin; Z88.8 Allergy status to other drugs, medicaments and biological substances; Z79.899 Other long term (current) drug therapy

== ENCOUNTER → 2017-10-11 | Outpatient (CLI) | payer OTHER ==
[~2017-10-11] MED LIST changes: +AMBIEN10 M1 PO; +LATU120T PO; +ZOLOFT50 MG PO
== END | disposition home or self-care (01) ==
LOC: US 03:41
DX: R10.11 Right upper quadrant pain (principal)

== ENCOUNTER → 2017-10-20 | Outpatient (CLI) | payer OTHER ==
[~2017-10-20] MED LIST changes: +ADULT TUSS100 MG/5 M PO
== END | disposition home or self-care (01) ==
LOC: NM 06:42
DX: R10.11 Right upper quadrant pain (principal); R11.2 Nausea with vomiting, unspecified

== ENCOUNTER → 2017-11-02 | Outpatient (CLI) | payer OTHER ==
[~2017-11-02] VITALS: Ht 172.7 cm; Wt 79.4 kg
[2017-11-02 09:39] VITALS: BP 131/89
[2017-11-02 11:13] LABS: BASO # 0.1 10*3/uL (0.0-0.1); BASO % 0.6 % (0.0-1.0); EOS # 0.2 10*3/uL (0.0-0.4); EOS % 1.6 % (1.0-4.0); HEMATOCRIT 42.2 % (37.0-47.0); LYMPH % 20.5 % (27.0-41.0); MEAN CELL VOLUME 88.3 fl (81.0-99.0); MEAN CORPUSCULAR HGB 31.4 pg (27.0-31.0); MEAN CORPUSCULAR HGB CONC 35.5 g/dl (33.0-37.0); MEAN PLATELET VOLUME 10.9 fl (9.6-12.3); MONO # 0.7 10*3/uL (0.1-1.0); MONO % 6.9 % (3.0-9.0); NEUT # 6.8 10*3/uL (2.3-7.9); NEUT % 70.2 % (47.0-73.0); PLATELET COUNT AUTOMATED 316 10*3/uL (130-400); RED BLOOD COUNT 4.78 10*6/uL (4.10-5.10); RED CELL DISTRI WIDTH 12.4 % (0-14.5); WHITE BLOOD COUNT 9.7 10*3/uL (4.8-10.8)
[2017-11-02 11:19] LABS: BILIRUBIN NEGATIVE (NEGATIVE); BLOOD NEGATIVE (NEGATIVE); CLARITY CLOUDY (CLEAR); COLOR YELLOW (YELLOW); GLUCOSE NEGATIVE (NEGATIVE); KETONE TRACE (NEGATIVE); LEUKO ESTERASE 1+ (NEGATIVE); NITRITE NEGATIVE (NEGATIVE); PH 6.5 (5.0-9.0)
[2017-11-02 11:30] LABS: BACTERIA 2+; EPITHELIAL CELLS 21-30
[2017-11-02 11:39] LABS: ALBUMIN 4.4 gm/dl (3.1-4.5); ALKALINE PHOSPHATASE 120 U/L (45-117); BILIRUBIN, DIRECT 0.1 mg/dL (0.0-0.2); BUN 6 mg/dl (7-24); CHLORIDE 107 mmol/L (98-107); CREATININE 0.77 mg/dL (0.55-1.02); POTASSIUM 3.6 mmol/L (3.5-5.1); SGOT/AST 13 IU/L (3-35); SGPT/ALT 23 U/L (12-78); SODIUM 140 mmol/L (136-145); TOTAL PROTEIN 8.2 gm/dL (6.4-8.2)
[2017-11-02 11:44] LABS: ACT PARTIAL THROMBO TIME 23.9 SECONDS (20.8-31.5)
== END | disposition home or self-care (01) ==
LOC: LAB 00:01 → SDC 09:30 → EDSTATUS 11-04 09:30 → SDC 11-04 09:30
PROVIDERS: Surgery
DX: Z01.818 Encounter for other preprocedural examination (principal); K81.9 Cholecystitis, unspecified

== ENCOUNTER 2017-11-04 11:49 | Emergency (ER) | payer OTHER ==
[~2017-11-04] VITALS: Ht 172.7 cm; Wt 79.4 kg
[~2017-11-04 11:49] MED LIST changes: -ADULT TUSS100 MG/5 M PO
[2017-11-04 12:01] VITALS: BP 124/95
[2017-11-04 12:31] LABS: BILIRUBIN NEGATIVE (NEGATIVE); BLOOD NEGATIVE (NEGATIVE); CLARITY CLOUDY (CLEAR); COLOR YELLOW (YELLOW); GLUCOSE NEGATIVE (NEGATIVE); KETONE NEGATIVE (NEGATIVE); LEUKO ESTERASE 3+ (NEGATIVE); NITRITE NEGATIVE (NEGATIVE); UROBILINOGEN 0.2 E.U./dl (0.2-1.0)
[2017-11-04 12:46] LABS: BACTERIA 3+; EPITHELIAL CELLS 25-35; WBC TNTC wbc/hpf (0-5)
[2017-11-04] MEDS ORDERED: MACROBID100 M1 PO (12:54)
== END 2017-11-04 13:46 | disposition home or self-care (01) ==
LOC: ED 11:49
PROVIDERS: Nurse Practitioner Family
DX: O23.41 Unspecified infection of urinary tract in pregnancy, first trimester (principal); O99.331 Smoking (tobacco) complicating pregnancy, first trimester; F17.200 Nicotine dependence, unspecified, uncomplicated; Z79.899 Other long term (current) drug therapy; Z88.0 Allergy status to penicillin; Z3A.01 Less than 8 weeks gestation of pregnancy; Z90.49 Acquired absence of other specified parts of digestive tract; Z98.890 Other specified postprocedural states; Z88.1 Allergy status to other antibiotic agents; Z88.2 Allergy status to sulfonamides; Z88.6 Allergy status to analgesic agent; Z88.8 Allergy status to other drugs, medicaments and biological substances

== ENCOUNTER 2017-11-08 20:32 | Emergency (ER) | payer OTHER ==
[~2017-11-08] VITALS: Ht 172.7 cm; Wt 79.4 kg
[2017-11-08 20:55] VITALS: BP 127/85
[2017-11-08 21:17] LABS: BILIRUBIN NEGATIVE (NEGATIVE); BLOOD NEGATIVE (NEGATIVE); CLARITY CLEAR (CLEAR); COLOR YELLOW (YELLOW); GLUCOSE NEGATIVE (NEGATIVE); KETONE NEGATIVE (NEGATIVE); LEUKO ESTERASE 1+ (NEGATIVE); NITRITE NEGATIVE (NEGATIVE); UROBILINOGEN 0.2 E.U./dl (0.2-1.0)
[2017-11-08 21:40] LABS: BACTERIA TRACE; EPITHELIAL CELLS 30-35; RBC 0-2 rbc/hpf (0-2); WBC 0-2 wbc/hpf (0-5)
[2017-11-08] MEDS ORDERED: ADULT TUSS100 MG/5 M PO (22:09)
== END 2017-11-08 22:32 | disposition home or self-care (01) ==
LOC: ED 20:32
PROVIDERS: Nurse Practitioner Family
DX: O23.41 Unspecified infection of urinary tract in pregnancy, first trimester (principal); O99.511 Diseases of the respiratory system complicating pregnancy, first trimester; J06.9 Acute upper respiratory infection, unspecified; Z3A.01 Less than 8 weeks gestation of pregnancy; K21.9 Gastro-esophageal reflux disease without esophagitis; Z88.0 Allergy status to penicillin; Z88.1 Allergy status to other antibiotic agents; Z88.2 Allergy status to sulfonamides

== ENCOUNTER 2017-11-15 14:24 | Emergency (ER) | payer OTHER ==
[~2017-11-15] VITALS: Wt 79.4 kg
[~2017-11-15 14:24] MED LIST changes: +ADULT TUSS100 MG/5 M PO
[2017-11-15 14:32] VITALS: BP 118/90
[2017-11-15 14:58] LABS: BASO # 0.1 10*3/uL (0.0-0.1); BASO % 0.4 % (0.0-1.0); EOS # 0.2 10*3/uL (0.0-0.4); EOS % 1.5 % (1.0-4.0); HEMATOCRIT 40.7 % (37.0-47.0); HEMOGLOBIN 14.3 g/dl (12.0-16.0); LYMPH % 21.3 % (27.0-41.0); MEAN CELL VOLUME 88.5 fl (81.0-99.0); MEAN CORPUSCULAR HGB 31.1 pg (27.0-31.0); MEAN CORPUSCULAR HGB CONC 35.1 g/dl (33.0-37.0); MEAN PLATELET VOLUME 10.8 fl (9.6-12.3); MONO # 0.9 10*3/uL (0.1-1.0); MONO % 6.5 % (3.0-9.0); NEUT # 9.9 10*3/uL (2.3-7.9); NEUT % 69.8 % (47.0-73.0); PLATELET COUNT AUTOMATED 338 10*3/uL (130-400); RED CELL DISTRI WIDTH 12.5 % (0-14.5); WHITE BLOOD COUNT 14.2 10*3/uL (4.8-10.8)
[2017-11-15 15:07] LABS: ACT PARTIAL THROMBO TIME 23.2 SECONDS (20.8-31.5); INTERNATIONAL NORM RATIO 0.9 (2.0-3.5)
[2017-11-15 15:14] LABS: ALBUMIN 4.1 gm/dl (3.1-4.5); ALKALINE PHOSPHATASE 105 U/L (45-117); BUN 7 mg/dl (7-24); CHLORIDE 106 mmol/L (98-107); CREATININE 0.68 mg/dL (0.55-1.02); POTASSIUM 3.9 mmol/L (3.5-5.1); SGOT/AST 10 IU/L (3-35); SGPT/ALT 22 U/L (12-78); SODIUM 138 mmol/L (136-145); TOTAL PROTEIN 7.7 gm/dL (6.4-8.2)
[2017-11-15 15:25] LABS: BILIRUBIN NEGATIVE (NEGATIVE); BLOOD NEGATIVE (NEGATIVE); CLARITY SL CLOUDY (CLEAR); COLOR YELLOW (YELLOW); GLUCOSE NEGATIVE (NEGATIVE); KETONE NEGATIVE (NEGATIVE); LEUKO ESTERASE NEGATIVE (NEGATIVE); NITRITE NEGATIVE (NEGATIVE); SPECIFIC GRAVITY 1.025 (1.005-1.030); UROBILINOGEN 0.2 E.U./dl (0.2-1.0)
[2017-11-15 15:31] LABS: RBC 0-2 rbc/hpf (0-2)
[2017-11-15 15:32] LABS: BACTERIA 2+; MUCOUS TRACE
[2017-11-15 15:38] LABS: URINE AMPHETAMINES < 1000 (1000ng/ml); URINE BARBITURATES < 200 (200ng/ml); URINE BENZODIAZEPINES < 200 (200ng/ml); URINE CANNABINOIDS (THC) < 50 (50ng/ml); URINE COCAINE < 300 (300ng/ml); URINE METHADONE < 300 (300ng/ml); URINE OPIATES < 300 (300ng/ml)
[2017-11-15 15:39] LABS: URINE PHENCYCLIDINE < 25 (25ng/ml)
== END 2017-11-15 16:14 | disposition home or self-care (01) ==
LOC: ED 14:24
PROVIDERS: Physician Assistant
DX: O46.91 Antepartum hemorrhage, unspecified, first trimester (principal); Z3A.01 Less than 8 weeks gestation of pregnancy; Z88.0 Allergy status to penicillin; Z88.1 Allergy status to other antibiotic agents; Z88.8 Allergy status to other drugs, medicaments and biological substances; Z79.899 Other long term (current) drug therapy

== ENCOUNTER 2017-12-20 11:35 | Emergency (ER) | payer OTHER ==
[~2017-12-20] VITALS: Ht 170.1 cm; Wt 82.1 kg
[2017-12-20 11:49] VITALS: BP 118/78
[2017-12-20] MEDS ORDERED: REGLAN10 M1 PO (11:58)
[2017-12-20 12:11] LABS: BASO % 0.5 % (0.0-1.0); EOS # 0.1 10*3/uL (0.0-0.4); EOS % 1.3 % (1.0-4.0); HEMATOCRIT 38.8 % (37.0-47.0); HEMOGLOBIN 13.4 g/dl (12.0-16.0); LYMPH # 1.1 10*3/uL (1.3-4.4); LYMPH % 13.6 % (27.0-41.0); MEAN CELL VOLUME 92.2 fl (81.0-99.0); MEAN CORPUSCULAR HGB 31.8 pg (27.0-31.0); MEAN CORPUSCULAR HGB CONC 34.5 g/dl (33.0-37.0); MEAN PLATELET VOLUME 10.5 fl (9.6-12.3); MONO # 0.6 10*3/uL (0.1-1.0); MONO % 7.8 % (3.0-9.0); NEUT # 6.2 10*3/uL (2.3-7.9); NEUT % 76.2 % (47.0-73.0); PLATELET COUNT AUTOMATED 258 10*3/uL (130-400); RED BLOOD COUNT 4.21 10*6/uL (4.10-5.10); RED CELL DISTRI WIDTH 13.2 % (0-14.5); WHITE BLOOD COUNT 8.2 10*3/uL (4.8-10.8)
[2017-12-20 12:23] LABS: BILIRUBIN 1+ (NEGATIVE); BLOOD NEGATIVE (NEGATIVE); CLARITY CLOUDY (CLEAR); COLOR YELLOW (YELLOW); GLUCOSE NEGATIVE (NEGATIVE); KETONE NEGATIVE (NEGATIVE); LEUKO ESTERASE 1+ (NEGATIVE); NITRITE NEGATIVE (NEGATIVE); PH 6.5 (5.0-9.0); SPECIFIC GRAVITY 1.015 (1.005-1.030); UROBILINOGEN >= 8.0 E.U./dl (0.2-1.0)
[2017-12-20 12:27] LABS: ALBUMIN 3.3 gm/dl (3.1-4.5); ALKALINE PHOSPHATASE 88 U/L (45-117); BUN 5 mg/dl (7-24); CHLORIDE 104 mmol/L (98-107); CREATININE 0.52 mg/dL (0.55-1.02); POTASSIUM 3.6 mmol/L (3.5-5.1); SGOT/AST 15 IU/L (3-35); SGPT/ALT 21 U/L (12-78); SODIUM 137 mmol/L (136-145); TOTAL PROTEIN 7.1 gm/dL (6.4-8.2)
[2017-12-20 12:45] LABS: BACTERIA 2+; EPITHELIAL CELLS 20-30; MUCOUS 1+
[2017-12-20] MEDS ORDERED: PYRIDOXINE HCL25 MG PO (15:06)
[2017-12-20] MEDS ORDERED: UNISOM25 M1 PO (15:06)
== END 2017-12-20 15:10 | disposition home or self-care (01) ==
LOC: ED 11:35
PROVIDERS: Emergency Medicine
DX: O21.0 Mild hyperemesis gravidarum (principal); O26.891 Other specified pregnancy related conditions, first trimester; K21.9 Gastro-esophageal reflux disease without esophagitis; G43.909 Migraine, unspecified, not intractable, without status migrainosus; O99.511 Diseases of the respiratory system complicating pregnancy, first trimester; J45.909 Unspecified asthma, uncomplicated; Z3A.10 10 weeks gestation of pregnancy; Z90.49 Acquired absence of other specified parts of digestive tract; Z98.890 Other specified postprocedural states; Z88.8 Allergy status to other drugs, medicaments and biological substances; Z88.1 Allergy status to other antibiotic agents; Z88.0 Allergy status to penicillin; Z79.899 Other long term (current) drug therapy

== ENCOUNTER 2017-12-30 19:27 | Emergency (ER) | payer OTHER ==
[~2017-12-30] VITALS: Ht 172.7 cm; Wt 81.6 kg
[~2017-12-30 19:27] MED LIST changes: +PYRIDOXINE HCL25 MG PO; +REGLAN10 M1 PO; +UNISOM25 M1 PO
[2017-12-30 20:10] VITALS: BP 115/78
== END 2017-12-30 19:59 | disposition home or self-care (01) ==
LOC: ED 19:27
DX: O9A.211 Injury, poisoning and certain other consequences of external causes complicating pregnancy, first trimester (principal); S93.401A Sprain of unspecified ligament of right ankle, initial encounter; Z90.49 Acquired absence of other specified parts of digestive tract; Z98.890 Other specified postprocedural states; Z79.899 Other long term (current) drug therapy; Z88.0 Allergy status to penicillin; Z88.1 Allergy status to other antibiotic agents; Z88.6 Allergy status to analgesic agent; Z88.8 Allergy status to other drugs, medicaments and biological substances; Z88.2 Allergy status to sulfonamides; Z3A.12 12 weeks gestation of pregnancy; X50.1XXA Overexertion from prolonged static or awkward postures, initial encounter; Y93.89 Activity, other specified; Y92.89 Other specified places as the place of occurrence of the external cause; Y99.9 Unspecified external cause status

== ENCOUNTER → 2017-12-31 | Outpatient (CLI) | payer OTHER | END | disposition home or self-care (01) | LOC: RAD 13:39 | DX: M25.571 Pain in right ankle and joints of right foot (principal); M79.89 Other specified soft tissue disorders ==

== ENCOUNTER → 2018-02-23 | Outpatient (CLI) | payer OTHER ==
[~2018-02-23] MED LIST changes: +PRENATAL VITAM1 EAC4 PO; +PROAIR HFA8.5 GM INH
[2018-02-23 10:28] LABS: FREE T4 0.96 ng/dl (0.76-1.46)
[2018-02-23 10:34] LABS: THYROID STIM HORMONE (HS) 1.82 uIU/ml (0.358-4.75)
[2018-02-24 05:12] LABS: FREE T3 010389 3.2 pg/mL (2.0-4.4)
[2018-02-25 07:05] LABS: THYROID STIM IMMUNOGLOBULIN <0.10 IU/L (0.00-0.55)
== END | disposition home or self-care (01) ==
LOC: LAB 09:29
PROVIDERS: Internal Medicine
DX: R94.6 Abnormal results of thyroid function studies (principal)

== ENCOUNTER 2018-03-25 13:25 | Emergency (ER) | payer OTHER ==
[~2018-03-25] VITALS: Ht 170.1 cm; Wt 79.4 kg
[~2018-03-25 13:25] MED LIST changes: -PRENATAL VITAM1 EAC4 PO; -PROAIR HFA8.5 GM INH
[2018-03-25 13:30] VITALS: BP 128/75
[2018-03-25] MEDS ORDERED: PRENATAL VITAM1 EAC4 PO (13:32)
[2018-03-25] MEDS ORDERED: PREDNISONE10 MG PO (13:41)
[2018-03-25] MEDS ORDERED: PROAIR HFA8.5 GM INH (13:41)
== END 2018-03-25 13:43 | disposition home or self-care (01) ==
LOC: ED 13:25
DX: O99.512 Diseases of the respiratory system complicating pregnancy, second trimester (principal); J45.901 Unspecified asthma with (acute) exacerbation; K21.9 Gastro-esophageal reflux disease without esophagitis; G43.909 Migraine, unspecified, not intractable, without status migrainosus; Z88.1 Allergy status to other antibiotic agents; Z88.8 Allergy status to other drugs, medicaments and biological substances; Z79.899 Other long term (current) drug therapy; Z3A.24 24 weeks gestation of pregnancy

== ENCOUNTER 2018-03-27 20:59 | Emergency (ER) | payer OTHER ==
[~2018-03-27] VITALS: Ht 170.1 cm; Wt 78.9 kg
[~2018-03-27 20:59] MED LIST changes: +PRENATAL VITAM1 EAC4 PO; +PROAIR HFA8.5 GM INH
[2018-03-27 21:31] LABS: BASO % 0.3 % (0.0-1.0); EOS # 0.2 10*3/uL (0.0-0.4); EOS % 1.4 % (1.0-4.0); HEMATOCRIT 35.2 % (37.0-47.0); HEMOGLOBIN 12.1 g/dl (12.0-16.0); LYMPH # 2.7 10*3/uL (1.3-4.4); LYMPH % 23.2 % (27.0-41.0); MEAN CELL VOLUME 94.6 fl (81.0-99.0); MEAN CORPUSCULAR HGB 32.5 pg (27.0-31.0); MEAN CORPUSCULAR HGB CONC 34.4 g/dl (33.0-37.0); MEAN PLATELET VOLUME 10.8 fl (9.6-12.3); MONO # 0.5 10*3/uL (0.1-1.0); MONO % 4.1 % (3.0-9.0); NEUT # 8.1 10*3/uL (2.3-7.9); NEUT % 70.7 % (47.0-73.0); PLATELET COUNT AUTOMATED 209 10*3/uL (130-400); RED BLOOD COUNT 3.72 10*6/uL (4.10-5.10); RED CELL DISTRI WIDTH 13.7 % (0-14.5); WHITE BLOOD COUNT 11.5 10*3/uL (4.8-10.8)
[2018-03-27 21:50] LABS: ALBUMIN 3.1 gm/dl (3.1-4.5); ALKALINE PHOSPHATASE 85 U/L (45-117); BUN 7 mg/dl (7-24); CHLORIDE 109 mmol/L (98-107); CREATININE 0.58 mg/dL (0.55-1.02); POTASSIUM 2.9 mmol/L (3.5-5.1); SGOT/AST 18 IU/L (3-35); SGPT/ALT 28 U/L (12-78); SODIUM 140 mmol/L (136-145); TOTAL PROTEIN 6.9 gm/dL (6.4-8.2)
[2018-03-27 22:35] LABS: BILIRUBIN 1+ (NEGATIVE); BLOOD NEGATIVE (NEGATIVE); CLARITY SL CLOUDY (CLEAR); COLOR YELLOW (YELLOW); GLUCOSE NEGATIVE (NEGATIVE); KETONE 1+ (NEGATIVE); LEUKO ESTERASE TRACE (NEGATIVE); NITRITE NEGATIVE (NEGATIVE); SPECIFIC GRAVITY 1.025 (1.005-1.030)
[2018-03-27 22:47] LABS: BACTERIA 1+; MUCOUS 1+
[2018-03-28 00:01] VITALS: BP 110/73
== END 2018-03-28 00:38 | disposition left against medical advice (07) ==
LOC: ED 20:59
PROVIDERS: Emergency Medicine
DX: O99.512 Diseases of the respiratory system complicating pregnancy, second trimester (principal); J45.901 Unspecified asthma with (acute) exacerbation; O26.892 Other specified pregnancy related conditions, second trimester; E87.6 Hypokalemia; K21.9 Gastro-esophageal reflux disease without esophagitis; G43.909 Migraine, unspecified, not intractable, without status migrainosus; Z90.49 Acquired absence of other specified parts of digestive tract; Z98.890 Other specified postprocedural states; Z79.899 Other long term (current) drug therapy; Z88.1 Allergy status to other antibiotic agents; Z88.0 Allergy status to penicillin; Z88.6 Allergy status to analgesic agent; Z88.8 Allergy status to other drugs, medicaments and biological substances; Z3A.24 24 weeks gestation of pregnancy

== ENCOUNTER 2018-09-08 21:29 | Emergency (ER) | payer OTHER ==
[~2018-09-08] VITALS: Ht 170.1 cm; Wt 74.4 kg
[~2018-09-08 21:29] MED LIST changes: +NORCO 5-325 TA1 EACH PO
[2018-09-08 21:30] VITALS: BP 92/68
[2018-09-08] MEDS ORDERED: BANOPHEN50 MG PO (22:01)
[2018-09-08] MEDS ORDERED: KENALOG 0.1%80 GM T (22:01)
== END 2018-09-08 22:30 | disposition home or self-care (01) ==
LOC: ED 21:29
DX: L23.6 Allergic contact dermatitis due to food in contact with the skin (principal); L27.2 Dermatitis due to ingested food; J45.909 Unspecified asthma, uncomplicated; K21.9 Gastro-esophageal reflux disease without esophagitis; G43.909 Migraine, unspecified, not intractable, without status migrainosus; Z88.8 Allergy status to other drugs, medicaments and biological substances; Z88.2 Allergy status to sulfonamides; Z88.0 Allergy status to penicillin; Z88.1 Allergy status to other antibiotic agents; Z79.899 Other long term (current) drug therapy; Z90.49 Acquired absence of other specified parts of digestive tract

== ENCOUNTER 2018-10-13 12:26 | Emergency (ER) | payer OTHER ==
[~2018-10-13] VITALS: Ht 170.1 cm; Wt 73.5 kg
[2018-10-13 12:26] VITALS: BP 110/70
[~2018-10-13 12:26] MED LIST changes: +BANOPHEN50 MG PO; +KENALOG 0.1%80 GM T; +PREDNISONE50 MG PO
[2018-10-13] MEDS ORDERED: KENALOG 0.5% CR15 GM T (12:42)
== END 2018-10-13 12:49 | disposition home or self-care (01) ==
LOC: ED 12:26
DX: L25.9 Unspecified contact dermatitis, unspecified cause (principal); Z88.8 Allergy status to other drugs, medicaments and biological substances; Z88.1 Allergy status to other antibiotic agents; Z88.0 Allergy status to penicillin; Z79.899 Other long term (current) drug therapy

== ENCOUNTER 2018-10-18 12:32 | Emergency (ER) | payer OTHER ==
[~2018-10-18] VITALS: Ht 170.1 cm; Wt 73.5 kg
[2018-10-18 12:32] VITALS: BP 120/70
[~2018-10-18 12:32] MED LIST changes: +KENALOG 0.5% CR15 GM T
[2018-10-18 12:53] LABS: BASO % 0.5 % (0.0-1.0); EOS # 0.1 10*3/uL (0.0-0.4); EOS % 1.6 % (1.0-4.0); HEMATOCRIT 36.6 % (37.0-47.0); HEMOGLOBIN 12.8 g/dl (12.0-16.0); LYMPH # 2.4 10*3/uL (1.3-4.4); LYMPH % 29.3 % (27.0-41.0); MEAN CELL VOLUME 91.7 fl (81.0-99.0); MEAN CORPUSCULAR HGB 32.1 pg (27.0-31.0); MEAN PLATELET VOLUME 10.7 fl (9.6-12.3); MONO # 0.6 10*3/uL (0.1-1.0); MONO % 7.8 % (3.0-9.0); NEUT % 60.6 % (47.0-73.0); PLATELET COUNT AUTOMATED 290 10*3/uL (130-400); RED BLOOD COUNT 3.99 10*6/uL (4.10-5.10); RED CELL DISTRI WIDTH 13.4 % (0-14.5); WHITE BLOOD COUNT 8.2 10*3/uL (4.8-10.8)
[2018-10-18 12:55] LABS: BILIRUBIN NEGATIVE (NEGATIVE); BLOOD NEGATIVE (NEGATIVE); CLARITY CLOUDY (CLEAR); COLOR YELLOW (YELLOW); GLUCOSE NEGATIVE (NEGATIVE); KETONE TRACE (NEGATIVE); LEUKO ESTERASE 2+ (NEGATIVE); NITRITE NEGATIVE (NEGATIVE); SPECIFIC GRAVITY 1.015 (1.005-1.030)
[2018-10-18 13:07] LABS: BACTERIA 4+; EPITHELIAL CELLS TNTC; RBC TNTC rbc/hpf (0-2); WBC TNTC wbc/hpf (0-5)
[2018-10-18 13:10] LABS: ALBUMIN 3.6 gm/dl (3.1-4.5); ALKALINE PHOSPHATASE 68 U/L (45-117); BUN 7 mg/dl (7-24); CHLORIDE 110 mmol/L (98-107); CREATININE 0.73 mg/dL (0.55-1.02); POTASSIUM 3.5 mmol/L (3.5-5.1); SGOT/AST 14 IU/L (3-35); SGPT/ALT 21 U/L (12-78); SODIUM 141 mmol/L (136-145); TOTAL PROTEIN 6.8 gm/dL (6.4-8.2)
[2018-10-18] MEDS ORDERED: ZOFRAN4 MG PO (13:38)
[2018-10-18] MEDS ORDERED: MACROBID100 M1 PO (13:41)
== END 2018-10-18 13:46 | disposition home or self-care (01) ==
LOC: ED 12:32
PROVIDERS: Nurse Practitioner Family
DX: N39.0 Urinary tract infection, site not specified (principal); R51 Headache; F17.200 Nicotine dependence, unspecified, uncomplicated; Z88.0 Allergy status to penicillin; Z88.1 Allergy status to other antibiotic agents; Z88.8 Allergy status to other drugs, medicaments and biological substances; Z79.899 Other long term (current) drug therapy

== ENCOUNTER 2018-10-20 20:45 | Emergency (ER) | payer OTHER ==
[~2018-10-20] VITALS: Ht 167.6 cm; Wt 73.5 kg
--- NOTE | ~2018-10-20 | EKG ---
[place], [place] ELECTROCARDIOGRAM REPORT NAME: LEONORA NOLASCO UNIT #: [id number] ROOM: DOCTOR: EPIPHANY DRAFT REPORT BIRTHDATE: [birth year] [facility] Test Date: 2018-10-20 Test Time: 21:15:15 Pat Name: LEONORA NOLASCO Department: Room: Gender: F Market Manager: : 1990 Requested By: MP PABON Order Number: [id number] Reading MD: Measurements Intervals [place] Rate: 102 P: 72 TN: 173 QRS: 63 QRSD: 99 T: -14 QT: 342 QTc: 446 Interpretive Statements Sinus tachycardia Repol abnrm suggests ischemia, diffuse leads Baseline wander in lead(s) II,III,aVR,aVF,V3,V5 No previous ECG available for comparison CM:EKGRPT:ELECTROCARDIOGRAM REPORT 14 182 MP SALAZAR DRAFT REPORT MP PABON MD
[2018-10-20 21:21] LABS: BASO # 0.1 10*3/uL (0.0-0.1); BASO % 0.5 % (0.0-1.0); EOS # 0.3 10*3/uL (0.0-0.4); EOS % 1.9 % (1.0-4.0); HEMATOCRIT 40.9 % (37.0-47.0); HEMOGLOBIN 14.2 g/dl (12.0-16.0); LYMPH # 4.7 10*3/uL (1.3-4.4); LYMPH % 36.1 % (27.0-41.0); MEAN CORPUSCULAR HGB 32.3 pg (27.0-31.0); MEAN CORPUSCULAR HGB CONC 34.7 g/dl (33.0-37.0); MONO # 1.1 10*3/uL (0.1-1.0); MONO % 8.5 % (3.0-9.0); NEUT # 6.9 10*3/uL (2.3-7.9); NEUT % 52.8 % (47.0-73.0); PLATELET COUNT AUTOMATED 341 10*3/uL (130-400); RED CELL DISTRI WIDTH 13.6 % (0-14.5); WHITE BLOOD COUNT 13.1 10*3/uL (4.8-10.8)
[2018-10-20 21:23] LABS: BILIRUBIN NEGATIVE (NEGATIVE); BLOOD 2+ (NEGATIVE); CLARITY CLEAR (CLEAR); COLOR YELLOW (YELLOW); GLUCOSE NEGATIVE (NEGATIVE); KETONE NEGATIVE (NEGATIVE); LEUKO ESTERASE TRACE (NEGATIVE); NITRITE NEGATIVE (NEGATIVE); PH 6.5 (5.0-9.0); SPECIFIC GRAVITY 1.015 (1.005-1.030); UROBILINOGEN 0.2 E.U./dl (0.2-1.0)
[2018-10-20 21:31] LABS: BACTERIA 2+; URINE AMPHETAMINES < 1000 (1000ng/ml); URINE BARBITURATES < 200 (200ng/ml); URINE BENZODIAZEPINES < 200 (200ng/ml); URINE CANNABINOIDS (THC) < 50 (50ng/ml); URINE COCAINE < 300 (300ng/ml); URINE METHADONE < 300 (300ng/ml); URINE OPIATES < 300 (300ng/ml)
[2018-10-20 21:35] LABS: URINE PHENCYCLIDINE < 25 (25ng/ml)
[2018-10-20 21:39] LABS: ALBUMIN 3.9 gm/dl (3.1-4.5); ALKALINE PHOSPHATASE 77 U/L (45-117); BUN 8 mg/dl (7-24); CHLORIDE 109 mmol/L (98-107); CREATININE 0.82 mg/dL (0.55-1.02); POTASSIUM 2.8 mmol/L (3.5-5.1); SGOT/AST 14 IU/L (3-35); SGPT/ALT 25 U/L (12-78); SODIUM 142 mmol/L (136-145); TOTAL PROTEIN 7.6 gm/dL (6.4-8.2)
[2018-10-20 21:41] LABS: ACETAMINOPHEN (TYLENOL) < 5.0 ug/ml (10-30); BETA-HCG, QUANT < 1.0 mIU/mL (1-3); ETHYL ALCOHOL < 3.0 mg/dl (<3); TROPONIN I < 0.015 ng/ml (<0.045)
[2018-10-20 21:46] LABS: THYROID STIM HORMONE (HS) 0.489 uIU/ml (0.358-4.75)
[2018-10-21 06:12] LABS: BUN 4 mg/dl (7-24); CHLORIDE 109 mmol/L (98-107); CREATININE 0.64 mg/dL (0.55-1.02); POTASSIUM 3.7 mmol/L (3.5-5.1); SODIUM 141 mmol/L (136-145)
[2018-10-21 07:17] VITALS: BP 132/88
[2019-01-05] MEDS ORDERED: ZOFRAN4 MG PO (22:00)
[2019-02-19] MEDS ORDERED: ANAPROX DS550 MG PO (22:50)
[2019-04-13] MEDS ORDERED: VRAYLAR4.5 MG PO (12:09)
[2019-04-13] MEDS ORDERED: ZOFRAN4 MG PO (15:28)
== END 2018-10-21 08:24 | disposition home or self-care (01) ==
LOC: ED 20:45
PROVIDERS: Emergency Medicine Emergency Medical Services
DX: F31.9 Bipolar disorder, unspecified (principal); R11.2 Nausea with vomiting, unspecified; J45.909 Unspecified asthma, uncomplicated; K21.9 Gastro-esophageal reflux disease without esophagitis; G43.909 Migraine, unspecified, not intractable, without status migrainosus; Z90.49 Acquired absence of other specified parts of digestive tract; Z88.8 Allergy status to other drugs, medicaments and biological substances; Z88.2 Allergy status to sulfonamides; Z88.0 Allergy status to penicillin; Z88.1 Allergy status to other antibiotic agents

== ENCOUNTER 2018-11-19 16:07 | Emergency (ER) | payer OTHER ==
[~2018-11-19] VITALS: Ht 170.1 cm; Wt 68.0 kg
[2018-11-19 16:10] VITALS: BP 140/92
[2018-11-19] MEDS ORDERED: PREDNISONE50 MG PO (16:59)
[2018-11-19] MEDS ORDERED: GUAIFENESIN600 MG PO (17:00)
[2019-01-05] MEDS ORDERED: ZOFRAN4 MG PO (22:00)
[2019-02-19] MEDS ORDERED: ANAPROX DS550 MG PO (22:50)
[2019-04-13] MEDS ORDERED: VRAYLAR4.5 MG PO (12:09)
[2019-04-13] MEDS ORDERED: ZOFRAN4 MG PO (15:28)
== END 2018-11-19 17:15 | disposition home or self-care (01) ==
LOC: ED 16:07
DX: J45.901 Unspecified asthma with (acute) exacerbation (principal); J06.9 Acute upper respiratory infection, unspecified; G43.909 Migraine, unspecified, not intractable, without status migrainosus; K21.9 Gastro-esophageal reflux disease without esophagitis; Z88.8 Allergy status to other drugs, medicaments and biological substances; Z88.2 Allergy status to sulfonamides; Z88.0 Allergy status to penicillin; Z88.1 Allergy status to other antibiotic agents

== ENCOUNTER 2018-11-26 23:42 | Emergency (ER) | payer OTHER ==
[~2018-11-26] VITALS: Ht 170.1 cm; Wt 68.0 kg
[~2018-11-26 23:42] MED LIST changes: +GUAIFENESIN600 MG PO
[2018-11-26 23:44] VITALS: BP 119/77
[2018-11-26] MEDS ORDERED: PREDNISONE50 MG PO (23:58)
[2018-11-26] MEDS ORDERED: TESSALON PERLE100 MG PO (23:58)
[2018-11-26] MEDS ORDERED: AVPAK AZITHROM250 MG PO (23:58)
[2019-01-05] MEDS ORDERED: ZOFRAN4 MG PO (22:00)
[2019-02-19] MEDS ORDERED: ANAPROX DS550 MG PO (22:50)
[2019-04-13] MEDS ORDERED: VRAYLAR4.5 MG PO (12:09)
[2019-04-13] MEDS ORDERED: ZOFRAN4 MG PO (15:28)
== END 2018-11-27 00:22 | disposition home or self-care (01) ==
LOC: ED 23:42
DX: J20.9 Acute bronchitis, unspecified (principal); J45.909 Unspecified asthma, uncomplicated; Z88.8 Allergy status to other drugs, medicaments and biological substances; Z88.2 Allergy status to sulfonamides; Z88.1 Allergy status to other antibiotic agents; Z88.0 Allergy status to penicillin; Z79.899 Other long term (current) drug therapy

== ENCOUNTER 2019-03-28 17:58 | Emergency (ER) | payer OTHER ==
[~2019-03-28] VITALS: Ht 170.1 cm; Wt 74.8 kg
[~2019-03-28 17:58] MED LIST changes: +AVPAK AZITHROM250 MG PO; +TESSALON PERLE100 MG PO
[2019-03-28 17:59] VITALS: BP 127/83
[2019-04-13] MEDS ORDERED: VRAYLAR4.5 MG PO (12:09)
[2019-04-13] MEDS ORDERED: ZOFRAN4 MG PO (15:28)
== END 2019-03-28 20:55 | disposition home or self-care (01) ==
LOC: ED 17:58
DX: G43.909 Migraine, unspecified, not intractable, without status migrainosus (principal); R11.10 Vomiting, unspecified; Z90.49 Acquired absence of other specified parts of digestive tract; Z98.890 Other specified postprocedural states; Z79.899 Other long term (current) drug therapy; Z88.6 Allergy status to analgesic agent; Z88.0 Allergy status to penicillin; Z88.1 Allergy status to other antibiotic agents; Z88.8 Allergy status to other drugs, medicaments and biological substances

== ENCOUNTER 2019-05-31 08:20 | Emergency (ER) | payer OTHER ==
[~2019-05-31] VITALS: Ht 170.1 cm; Wt 69.4 kg
[~2019-05-31 08:20] MED LIST changes: +VRAYLAR4.5 MG PO
[2019-05-31 08:23] VITALS: BP 111/80
[2019-05-31 08:53] LABS: BASO # 0.1 10*3/uL (0.0-0.1); BASO % 0.6 % (0.0-1.0); EOS # 0.2 10*3/uL (0.0-0.4); EOS % 2.3 % (1.0-4.0); HEMOGLOBIN 13.1 g/dl (12.0-16.0); LYMPH % 19.8 % (27.0-41.0); MEAN CELL VOLUME 94.5 fl (81.0-99.0); MEAN CORPUSCULAR HGB 32.6 pg (27.0-31.0); MEAN CORPUSCULAR HGB CONC 34.5 g/dl (33.0-37.0); MEAN PLATELET VOLUME 10.8 fl (9.6-12.3); MONO # 0.9 10*3/uL (0.1-1.0); MONO % 8.7 % (3.0-9.0); NEUT % 68.2 % (47.0-73.0); PLATELET COUNT AUTOMATED 229 10*3/uL (130-400); RED BLOOD COUNT 4.02 10*6/uL (4.10-5.10); RED CELL DISTRI WIDTH 12.7 % (0-14.5); WHITE BLOOD COUNT 10.3 10*3/uL (4.8-10.8)
[2019-05-31 08:54] LABS: BILIRUBIN NEGATIVE (NEGATIVE); BLOOD NEGATIVE (NEGATIVE); CLARITY CLEAR (CLEAR); COLOR YELLOW (YELLOW); GLUCOSE NEGATIVE (NEGATIVE); KETONE NEGATIVE (NEGATIVE); LEUKO ESTERASE TRACE (NEGATIVE); NITRITE POSITIVE (NEGATIVE); PH 6.5 (5.0-9.0); SPECIFIC GRAVITY 1.015 (1.005-1.030); UROBILINOGEN 0.2 E.U./dl (0.2-1.0)
[2019-05-31 09:08] LABS: ALBUMIN 3.8 gm/dl (3.1-4.5); ALKALINE PHOSPHATASE 80 U/L (45-117); BUN 6 mg/dl (7-24); CHLORIDE 109 mmol/L (98-107); CREATININE 0.76 mg/dL (0.55-1.02); LIPASE 142 U/L (73-393); POTASSIUM 3.8 mmol/L (3.5-5.1); SGOT/AST 9 IU/L (3-35); SGPT/ALT 16 U/L (12-78); SODIUM 139 mmol/L (136-145); TOTAL PROTEIN 6.7 gm/dL (6.4-8.2)
[2019-05-31 09:11] LABS: BACTERIA 4+; RBC 0-2 rbc/hpf (0-2)
[2019-05-31 09:15] LABS: BETA-HCG, QUANT < 1.0 mIU/mL (1-3)
[2019-05-31] MEDS ORDERED: ZOFRAN4 MG PO (09:25)
[2019-05-31] MEDS ORDERED: MACROBID100 M1 PO (09:25)
== END 2019-05-31 09:40 | disposition home or self-care (01) ==
LOC: ED 08:20
PROVIDERS: Emergency Medicine
DX: N39.0 Urinary tract infection, site not specified (principal); R11.2 Nausea with vomiting, unspecified; J45.909 Unspecified asthma, uncomplicated; K21.9 Gastro-esophageal reflux disease without esophagitis; G43.909 Migraine, unspecified, not intractable, without status migrainosus; Z88.8 Allergy status to other drugs, medicaments and biological substances; Z88.2 Allergy status to sulfonamides; Z88.0 Allergy status to penicillin; Z88.1 Allergy status to other antibiotic agents; Z79.899 Other long term (current) drug therapy; Z90.49 Acquired absence of other specified parts of digestive tract

== ENCOUNTER 2019-06-03 13:00 | Emergency (ER) | payer OTHER ==
[~2019-06-03] VITALS: Ht 170.1 cm; Wt 69.4 kg
[2019-06-03 13:03] VITALS: BP 107/70
[2019-06-03 13:23] LABS: BILIRUBIN NEGATIVE (NEGATIVE); BLOOD TRACE-INTACT (NEGATIVE); CLARITY SL CLOUDY (CLEAR); COLOR YELLOW (YELLOW); GLUCOSE NEGATIVE (NEGATIVE); KETONE NEGATIVE (NEGATIVE); LEUKO ESTERASE 1+ (NEGATIVE); NITRITE NEGATIVE (NEGATIVE); UROBILINOGEN 0.2 E.U./dl (0.2-1.0)
[2019-06-03 13:23] LABS: BASO # 0.1 10*3/uL (0.0-0.1); BASO % 0.4 % (0.0-1.0); EOS % 0.2 % (1.0-4.0); HEMATOCRIT 38.6 % (37.0-47.0); HEMOGLOBIN 13.6 g/dl (12.0-16.0); LYMPH % 7.9 % (27.0-41.0); MEAN CELL VOLUME 94.1 fl (81.0-99.0); MEAN CORPUSCULAR HGB 33.2 pg (27.0-31.0); MEAN CORPUSCULAR HGB CONC 35.2 g/dl (33.0-37.0); MEAN PLATELET VOLUME 10.3 fl (9.6-12.3); MONO # 0.6 10*3/uL (0.1-1.0); NEUT # 11.1 10*3/uL (2.3-7.9); NEUT % 86.1 % (47.0-73.0); PLATELET COUNT AUTOMATED 234 10*3/uL (130-400); RED CELL DISTRI WIDTH 12.7 % (0-14.5); WHITE BLOOD COUNT 12.8 10*3/uL (4.8-10.8)
[2019-06-03 13:27] LABS: RBC 0-2 rbc/hpf (0-2)
[2019-06-03 13:28] LABS: BACTERIA 4+
[2019-06-03 13:36] LABS: ALKALINE PHOSPHATASE 99 U/L (45-117); BUN 5 mg/dl (7-24); CHLORIDE 108 mmol/L (98-107); CREATININE 0.65 mg/dL (0.55-1.02); LIPASE 82 U/L (73-393); POTASSIUM 3.4 mmol/L (3.5-5.1); SGOT/AST 13 IU/L (3-35); SGPT/ALT 32 U/L (12-78); SODIUM 140 mmol/L (136-145); TOTAL PROTEIN 7.3 gm/dL (6.4-8.2)
[2019-06-03] MEDS ORDERED: VIBRAMYCIN100 MG PO (14:19)
== END 2019-06-03 14:25 | disposition home or self-care (01) ==
LOC: ED 13:00
PROVIDERS: Nurse Practitioner Family
DX: N39.0 Urinary tract infection, site not specified (principal); L02.512 Cutaneous abscess of left hand; R51 Headache; Z88.8 Allergy status to other drugs, medicaments and biological substances; Z88.0 Allergy status to penicillin; Z88.1 Allergy status to other antibiotic agents; Z88.2 Allergy status to sulfonamides; Z79.899 Other long term (current) drug therapy

== ENCOUNTER 2019-07-07 22:00 | Emergency (ER) | payer OTHER ==
[~2019-07-07] VITALS: Ht 170.1 cm; Wt 68.0 kg
[2019-07-07 22:03] VITALS: BP 122/84
[2019-07-07 22:52] LABS: BASO # 0.1 10*3/uL (0.0-0.1); BASO % 0.5 % (0.0-1.0); EOS # 0.2 10*3/uL (0.0-0.4); EOS % 1.3 % (1.0-4.0); HEMATOCRIT 37.6 % (37.0-47.0); HEMOGLOBIN 12.8 g/dl (12.0-16.0); LYMPH # 2.3 10*3/uL (1.3-4.4); LYMPH % 20.7 % (27.0-41.0); MEAN CELL VOLUME 95.9 fl (81.0-99.0); MEAN CORPUSCULAR HGB 32.7 pg (27.0-31.0); MEAN PLATELET VOLUME 11.4 fl (9.6-12.3); MONO # 0.6 10*3/uL (0.1-1.0); MONO % 5.5 % (3.0-9.0); NEUT % 71.7 % (47.0-73.0); PLATELET COUNT AUTOMATED 257 10*3/uL (130-400); RED BLOOD COUNT 3.92 10*6/uL (4.10-5.10); RED CELL DISTRI WIDTH 12.3 % (0-14.5); WHITE BLOOD COUNT 11.2 10*3/uL (4.8-10.8)
[2019-07-07 22:53] LABS: BILIRUBIN NEGATIVE (NEGATIVE); BLOOD NEGATIVE (NEGATIVE); CLARITY CLEAR (CLEAR); COLOR YELLOW (YELLOW); GLUCOSE NEGATIVE (NEGATIVE); KETONE NEGATIVE (NEGATIVE); LEUKO ESTERASE TRACE (NEGATIVE); NITRITE NEGATIVE (NEGATIVE); SPECIFIC GRAVITY 1.015 (1.005-1.030); UROBILINOGEN 0.2 E.U./dl (0.2-1.0)
[2019-07-07 23:05] LABS: BACTERIA 1+
[2019-07-07 23:12] LABS: ALBUMIN 3.6 gm/dl (3.1-4.5); ALKALINE PHOSPHATASE 96 U/L (45-117); BUN 14 mg/dl (7-24); CHLORIDE 110 mmol/L (98-107); CREATININE 0.77 mg/dL (0.55-1.02); LIPASE 119 U/L (73-393); POTASSIUM 4.1 mmol/L (3.5-5.1); SGOT/AST 20 IU/L (3-35); SGPT/ALT 32 U/L (12-78); SODIUM 142 mmol/L (136-145); TOTAL PROTEIN 6.9 gm/dL (6.4-8.2)
[2019-07-08] MEDS ORDERED: CIPRO500 MG PO (00:47)
== END 2019-07-08 00:53 | disposition home or self-care (01) ==
LOC: ED 22:00
PROVIDERS: Nurse Practitioner Family
DX: K59.00 Constipation, unspecified (principal); N39.0 Urinary tract infection, site not specified; R11.10 Vomiting, unspecified; G43.909 Migraine, unspecified, not intractable, without status migrainosus; K21.9 Gastro-esophageal reflux disease without esophagitis; J45.909 Unspecified asthma, uncomplicated; Z32.02 Encounter for pregnancy test, result negative; Z88.8 Allergy status to other drugs, medicaments and biological substances; Z79.2 Long term (current) use of antibiotics; Z88.0 Allergy status to penicillin; Z88.1 Allergy status to other antibiotic agents; Z79.899 Other long term (current) drug therapy

== ENCOUNTER 2019-08-03 18:54 | Emergency (ER) | payer OTHER ==
[~2019-08-03] VITALS: Ht 170.1 cm
[2019-08-03 18:55] VITALS: BP 123/83
[2019-08-03 19:36] LABS: BILIRUBIN NEGATIVE (NEGATIVE); BLOOD NEGATIVE (NEGATIVE); CLARITY SL CLOUDY (CLEAR); COLOR YELLOW (YELLOW); GLUCOSE NEGATIVE (NEGATIVE); KETONE NEGATIVE (NEGATIVE); LEUKO ESTERASE TRACE (NEGATIVE); NITRITE NEGATIVE (NEGATIVE); PH 7.5 (5.0-9.0); UROBILINOGEN 0.2 E.U./dl (0.2-1.0)
[2019-08-03 19:52] LABS: BACTERIA TRACE; WBC 0-2 wbc/hpf (0-5)
[2019-08-03] MEDS ORDERED: VIBRAMYCIN100 MG PO (20:46)
== END 2019-08-03 20:48 | disposition home or self-care (01) ==
LOC: ED 18:54
PROVIDERS: Emergency Medicine
DX: R30.0 Dysuria (principal); R10.30 Lower abdominal pain, unspecified; R11.0 Nausea; J45.909 Unspecified asthma, uncomplicated; K21.9 Gastro-esophageal reflux disease without esophagitis; G43.909 Migraine, unspecified, not intractable, without status migrainosus; Z88.8 Allergy status to other drugs, medicaments and biological substances; Z88.2 Allergy status to sulfonamides; Z88.0 Allergy status to penicillin; Z88.1 Allergy status to other antibiotic agents; Z79.2 Long term (current) use of antibiotics; Z79.899 Other long term (current) drug therapy

== ENCOUNTER 2019-10-19 20:15 | Emergency (ER) | payer OTHER ==
[~2019-10-19] VITALS: Ht 170.1 cm; Wt 72.6 kg
[2019-10-19 20:21] VITALS: BP 142/98
[2019-10-19 20:52] LABS: BILIRUBIN NEGATIVE (NEGATIVE); BLOOD NEGATIVE (NEGATIVE); CLARITY CLEAR (CLEAR); COLOR YELLOW (YELLOW); GLUCOSE NEGATIVE (NEGATIVE); KETONE NEGATIVE (NEGATIVE); LEUKO ESTERASE 2+ (NEGATIVE); NITRITE NEGATIVE (NEGATIVE); PH 6.5 (5.0-9.0); SPECIFIC GRAVITY 1.015 (1.005-1.030); UROBILINOGEN 0.2 E.U./dl (0.2-1.0)
[2019-10-19 20:53] LABS: BACTERIA TRACE; EPITHELIAL CELLS 51-100; WBC 21-30 wbc/hpf (0-5)
[2019-10-19 21:42] LABS: BASO # 0.1 10*3/uL (0.0-0.1); BASO % 0.6 % (0.0-1.0); EOS # 0.2 10*3/uL (0.0-0.4); EOS % 1.7 % (1.0-4.0); HEMATOCRIT 40.1 % (37.0-47.0); HEMOGLOBIN 13.8 g/dl (12.0-16.0); LYMPH # 2.4 10*3/uL (1.3-4.4); LYMPH % 23.1 % (27.0-41.0); MEAN CELL VOLUME 94.1 fl (81.0-99.0); MEAN CORPUSCULAR HGB 32.4 pg (27.0-31.0); MEAN CORPUSCULAR HGB CONC 34.4 g/dl (33.0-37.0); MEAN PLATELET VOLUME 10.9 fl (9.6-12.3); MONO # 0.7 10*3/uL (0.1-1.0); MONO % 6.8 % (3.0-9.0); NEUT # 7.1 10*3/uL (2.3-7.9); NEUT % 67.5 % (47.0-73.0); PLATELET COUNT AUTOMATED 268 10*3/uL (130-400); RED BLOOD COUNT 4.26 10*6/uL (4.10-5.10); RED CELL DISTRI WIDTH 12.1 % (0-14.5); WHITE BLOOD COUNT 10.5 10*3/uL (4.8-10.8)
[2019-10-19 22:00] LABS: ALBUMIN 3.9 gm/dl (3.1-4.5); ALKALINE PHOSPHATASE 80 U/L (45-117); BUN 10 mg/dl (7-24); CHLORIDE 109 mmol/L (98-107); CREATININE 0.73 mg/dL (0.55-1.02); POTASSIUM 3.9 mmol/L (3.5-5.1); SGOT/AST 9 IU/L (3-35); SGPT/ALT 16 U/L (12-78); SODIUM 140 mmol/L (136-145); TOTAL PROTEIN 7.1 gm/dL (6.4-8.2)
[2019-10-19 22:04] LABS: BETA-HCG, QUANT < 1.0 mIU/mL (1-3); TROPONIN I < 0.015 ng/ml (<0.045)
== END 2019-10-19 23:37 | disposition home or self-care (01) ==
LOC: ED 20:15
PROVIDERS: Emergency Medicine
DX: O26.891 Other specified pregnancy related conditions, first trimester (principal); R10.30 Lower abdominal pain, unspecified; R00.2 Palpitations; R11.0 Nausea; O99.351 Diseases of the nervous system complicating pregnancy, first trimester; G43.909 Migraine, unspecified, not intractable, without status migrainosus; O99.611 Diseases of the digestive system complicating pregnancy, first trimester; K21.9 Gastro-esophageal reflux disease without esophagitis; O99.341 Other mental disorders complicating pregnancy, first trimester; F31.9 Bipolar disorder, unspecified; F41.9 Anxiety disorder, unspecified; O99.511 Diseases of the respiratory system complicating pregnancy, first trimester; J45.909 Unspecified asthma, uncomplicated; Z3A.01 Less than 8 weeks gestation of pregnancy; Z90.49 Acquired absence of other specified parts of digestive tract; Z88.8 Allergy status to other drugs, medicaments and biological substances; Z88.2 Allergy status to sulfonamides; Z88.0 Allergy status to penicillin; Z88.1 Allergy status to other antibiotic agents; Z79.2 Long term (current) use of antibiotics; Z79.899 Other long term (current) drug therapy

== ENCOUNTER → 2019-10-24 | Outpatient (CLI) | payer OTHER | END | disposition home or self-care (01) | LOC: US 07:24 | DX: Z33.3 Pregnant state, gestational carrier (principal) ==

== ENCOUNTER → 2019-12-25 | Outpatient (CLI) | payer OTHER | END | disposition home or self-care (01) | LOC: RESCLI 10:54 | DX: R06.02 Shortness of breath (principal) ==

== ENCOUNTER 2020-02-10 19:51 | Emergency (ER) | payer OTHER ==
[~2020-02-10] VITALS: Ht 170.1 cm; Wt 74.8 kg
[2020-02-10 19:54] VITALS: BP 117/79
[2020-02-10 20:39] LABS: BILIRUBIN NEGATIVE (NEGATIVE); BLOOD TRACE-LYSED (NEGATIVE); CLARITY SL CLOUDY (CLEAR); COLOR YELLOW (YELLOW); GLUCOSE NEGATIVE (NEGATIVE); KETONE NEGATIVE (NEGATIVE); UROBILINOGEN 0.2 E.U./dl (0.2-1.0)
[2020-02-10 20:40] LABS: BACTERIA 3+; EPITHELIAL CELLS TNTC; LEUKO ESTERASE TRACE (NEGATIVE); MUCOUS 1+; NITRITE NEGATIVE (NEGATIVE)
[2020-02-10 21:10] LABS: BASO # 0.1 10*3/uL (0.0-0.1); BASO % 0.5 % (0.0-1.0); EOS # 0.2 10*3/uL (0.0-0.4); EOS % 1.8 % (1.0-4.0); HEMATOCRIT 39.3 % (37.0-47.0); LYMPH # 2.2 10*3/uL (1.3-4.4); LYMPH % 21.3 % (27.0-41.0); MEAN CELL VOLUME 91.8 fl (81.0-99.0); MEAN CORPUSCULAR HGB 32.5 pg (27.0-31.0); MEAN CORPUSCULAR HGB CONC 35.4 g/dl (33.0-37.0); MEAN PLATELET VOLUME 11.1 fl (9.6-12.3); MONO # 0.7 10*3/uL (0.1-1.0); MONO % 7.1 % (3.0-9.0); NEUT # 7.2 10*3/uL (2.3-7.9); NEUT % 68.9 % (47.0-73.0); PLATELET COUNT AUTOMATED 290 10*3/uL (130-400); RED BLOOD COUNT 4.28 10*6/uL (4.10-5.10); RED CELL DISTRI WIDTH 12.1 % (0-14.5); WHITE BLOOD COUNT 10.5 10*3/uL (4.8-10.8)
[2020-02-10 21:27] LABS: BUN 9 mg/dl (7-24); CHLORIDE 108 mmol/L (98-107); CREATININE 0.65 mg/dL (0.55-1.02); POTASSIUM 3.8 mmol/L (3.5-5.1); SODIUM 139 mmol/L (136-145)
[2020-02-10] MEDS ORDERED: VIBRAMYCIN100 MG PO (21:34)
== END 2020-02-10 21:58 | disposition home or self-care (01) ==
LOC: ED 19:51
PROVIDERS: Emergency Medicine Emergency Medical Services
DX: O23.41 Unspecified infection of urinary tract in pregnancy, first trimester (principal); O26.891 Other specified pregnancy related conditions, first trimester; J45.909 Unspecified asthma, uncomplicated; F41.9 Anxiety disorder, unspecified; K21.9 Gastro-esophageal reflux disease without esophagitis; F32.9 Major depressive disorder, single episode, unspecified; Z79.899 Other long term (current) drug therapy; Z79.2 Long term (current) use of antibiotics; Z88.8 Allergy status to other drugs, medicaments and biological substances; Z88.0 Allergy status to penicillin; Z3A.01 Less than 8 weeks gestation of pregnancy

== ENCOUNTER → 2020-02-13 | Outpatient (CLI) | payer OTHER | END | disposition home or self-care (01) | LOC: US 15:38 | DX: O20.9 Hemorrhage in early pregnancy, unspecified (principal); O26.891 Other specified pregnancy related conditions, first trimester; R10.2 Pelvic and perineal pain; Z3A.01 Less than 8 weeks gestation of pregnancy ==

== ENCOUNTER 2020-05-07 17:38 | Emergency (ER) | payer OTHER ==
[~2020-05-07] VITALS: Ht 170.1 cm; Wt 77.1 kg
[2020-05-07 17:45] VITALS: BP 113/76
[2020-05-07] MEDS ORDERED: ATIVAN1 MG PO (18:54)
== END 2020-05-07 19:00 | disposition home or self-care (01) ==
LOC: ED 17:38
DX: F41.9 Anxiety disorder, unspecified (principal); J45.909 Unspecified asthma, uncomplicated; G43.909 Migraine, unspecified, not intractable, without status migrainosus; Z88.8 Allergy status to other drugs, medicaments and biological substances; Z88.0 Allergy status to penicillin; Z90.49 Acquired absence of other specified parts of digestive tract

== ENCOUNTER → 2021-01-01 | Outpatient (CLI) | payer OTHER ==
[~2021-01-01] MED LIST changes: +ATIVAN1 MG PO
== END | disposition home or self-care (01) ==
LOC: COVID19 15:43
PROVIDERS: ATTEND Physician Assistant
DX: Z20.822 Contact with and (suspected) exposure to COVID-19 (principal); R69 Illness, unspecified